=== PATIENT | female | born 1980 | race Caucasian/White ===

== ENCOUNTER 2016-09-06 21:00 | Emergency (ER) | payer BC ==
[2016-09-06] MEDS ORDERED: Aspirin Low Dose CHEW TAB* 81 MG PO ONE (22:15)
[2016-09-06 22:49] LABS: Hematocrit 37 % (35-47); Hemoglobin 12.2 g/dl (12.0-16.0); Mean Corpuscular HGB Conc 33 g/dl (31-36); Mean Corpuscular Hemoglobin 28 pg (27-31); Mean Corpuscular Volume 85 fL (80-97); Mean Platelet Volume 8 um3 (7.4-10.4); Red Blood Count 4.33 10^6/ul (4.0-5.4); Red Cell Distribution Width 13 % (10.5-15); White Blood Count 9.7 10^3/ul (3.5-10.8)
[2016-09-06 23:06] LABS: Albumin 3.7 g/dL (3.2-5.2); BUN/Creatinine Ratio 16.9 (8-20); EGFR African American 132.6 (>60); EGFR Non-African American 103.1 (>60); Globulin 3.1 g/dL (2-4); Magnesium 1.9 mg/dL (1.9-2.7); Potassium 3.6 mmol/L (3.5-5.0); Total Bilirubin 0.3 mg/dL (0.2-1.0); Total Protein 6.8 g/dL (6.4-8.9)
[2016-09-06 23:26] LABS: T4 7.04 g/dL (6.09-12.23)
[2016-09-06 23:27] LABS: TSH (Thyroid Stimulating Horm) 0.79 mcIU/mL (0.34-5.60)
--- NOTE | 2016-09-06 23:38 | ED ---
Jose Martin Cartagena Rebecca, scribed for Pepe Lovelace MD on 09/06/16 at 2217 . HPI Chest Pain - HPI Summary HPI Summary: 36 y/o F who presents to ED c/o CP. Pain began suddenly at 1900 while making dinner and has been intermittent since onset, occurring every 15-20 minutes and each episode lasting 2 minutes. Pain is in the left anterior chest with occasional radiation to both arms. Pain is characterized as throbbing/stabbing and is currently ranked 4/10. Sx aggravated and alleviated by nothing. Additionally c/o two near syncopal episodes consisting of tunnel vision and dizziness. Denies N/V, SOB. PMHx hyperthyroidism that led to palpitations. Had prior cardiac workup after dx of hyperthyroidism. - History of Current Complaint Chief Complaint: EDChestPainROMI Time Seen by Provider: 09/06/16 22:09 Hx Obtained From: Patient Onset/Duration: Started Hours Ago, Still Present Time of Onset: 19:00 Timing: Intermittent, Lasting Minutes - 2 minutes Initial Severity: Moderate Current Severity: Moderate Pain Intensity: 4 Pain Scale Used: 0-10 Numeric Chest Pain Location: Left Anterior Chest Pain Radiates: Yes Chest Pain Radiates To:: Arm - Bilateral, occasionally Character: Sharp/Stabbing Aggravating Factor(s): Nothing Alleviating Factor(s): Nothing Associated Signs and Symptoms: Positive: Chest Pain, Dizziness - During near syncopal episode, Other: - 2 near syncopal episodes; during near syncopal episode had tunnel vision. Negative: Shortness of Breath, Nausea, Vomiting - Allergy/Home Medications Allergies/Adverse Reactions: Allergies Allergy/AdvReac Type Severity Reaction Status Date / Time No Known Allergies Allergy Verified 09/06/16 22:29 PMH/Surg Hx/FS Hx/Imm Hx Endocrine/Hematology History: Reports: Hx Thyroid Disease - Hyperthyroidism Cardiovascular History: Denies: Hx Coronary Artery Disease, Hx Hypertension Infectious Disease History: No Infectious Disease History: Denies: Traveled Outside the [place] in Last 30 Days - Family History Known Family History: Positive: Cardiac Disease - STEMI <55 y/o - Social History Alcohol Use: Occasionally Substance Use Type: Reports: None Hx Tobacco Use: No Smoking Status (MU): Never Smoked Tobacco Review of Systems Positive: Other - Dizziness during near syncopal episode Positive: Other - Tunnel vision during near syncopal episode Positive: Chest Pain Negative: Shortness Of Breath Negative: Vomiting, Nausea Positive: Syncope - 2 near syncopal episodes All Other Systems Reviewed And Are Negative: Yes Physical Exam - Summary Physical Exam Summary: VITAL SIGNS: Reviewed. GENERAL: Patient is a well developed and nourished female who is lying comfortable in the stretcher. Patient is not in any acute respiratory distress. HEAD AND FACE: No signs of trauma. No ecchymosis, hematomas or skull depressions. No sinus tenderness. EYES: PERRLA, EOMI x 2, No injected conjunctiva, no nystagmus. EARS: Hearing grossly intact. Ear canals and tympanic membranes are within normal limits. MOUTH: Oropharynx within normal limits. NECK: Supple, trachea is midline, no adenopathy, no JVD, no carotid bruit, no c- spine tenderness, neck with full ROM. CHEST: Symmetric, no tenderness at palpation LUNGS: Clear to auscultation bilaterally. No wheezing or crackles. CVS: Regular rate and rhythm, S1 and S2 present, no murmurs or gallops appreciated. ABDOMEN: Soft, non-tender. No signs of distention. No rebound no guarding, and no masses palpated. Bowel sounds are normal. EXTREMITIES: FROM in all major joints, no edema, no cyanosis or clubbing. NEURO: Alert and oriented x 3. No acute neurological deficits. Speech is normal and follows commands. SKIN: Dry and warm Triage Information Reviewed: Yes Vital Signs On Initial Exam: Initial Vitals Temp Pulse Resp BP Pulse Ox 99 F 91 16 136/88 100 09/06/16 21:17 09/06/16 21:17 09/06/16 21:17 09/06/16 21:17 09/06/16 21:17 Vital Signs Reviewed: Yes Diagnostics - Vital Signs Vital Signs Temp Pulse Resp BP Pulse Ox 09/06/16: 99 F 91 16 136/88 100 - Laboratory Lab Results: Lab Results 09/06/16 09/06/16 09/06/16 Range/Units 22:35 22:35 22:35 WBC 9.7 (3.5-10.8) 10^3/ul RBC 4.33 (4.0-5.4) 10^6/ul Hgb 12.2 (12.0-16.0) g/dl Hct 37 (35-47) % MCV 85 (80-97) fL MCH 28 (27-31) pg MCHC 33 (31-36) g/dl RDW 13 (10.5-15) % Plt Count 231 (150-450) 10^3/ul MPV 8 (7.4-10.4) um3 Neut % (Auto) 58.5 (38-83) % Lymph % (Auto) 29.4 (25-47) % [place] % (Auto) 7.2 (1-9) % Eos % (Auto) 3.6 (0-6) % Baso % (Auto) 1.3 (0-2) % Absolute Neuts (auto) 5.7 (1.5-7.7) 10^3/ul Absolute Lymphs (auto) 2.9 (1.0-4.8) 10^3/ul Absolute Monos (auto) 0.7 (0-0.8) 10^3/ul Absolute Eos (auto) 0.4 (0-0.6) 10^3/ul Absolute Basos (auto) 0.1 (0-0.2) 10^3/ul Absolute Nucleated RBC 0 10^3/ul Nucleated RBC % 0 Sodium 134 (133-145) mmol/L Potassium 3.6 (3.5-5.0) mmol/L Chloride 103 (101-111) mmol/L Carbon Dioxide 26 (22-32) mmol/L Anion Gap 5 (2-11) mmol/L BUN 11 (6-24) mg/dL Creatinine 0.65 (0.51-0.95) mg/dL Est GFR ( Amer) 132.6 (>60) Est GFR (Non-Af Amer) 103.1 (>60) BUN/Creatinine Ratio 16.9 (8-20) Glucose 96 (70-100) mg/dL Lactic Acid 0.6 (0.5-2.0) mmol/L Calcium 9.0 (8.6-10.3) mg/dL Magnesium 1.9 (1.9-2.7) mg/dL Total Bilirubin 0.30 (0.2-1.0) mg/dL AST 13 (13-39) U/L ALT 10 (7-52) U/L Alkaline Phosphatase 38 (34-104) U/L CK-MB (CK-2) 1.1 (0.6-6.3) ng/mL Troponin I 0.00 (<0.04) ng/mL Total Protein 6.8 (6.4-8.9) g/dL Albumin 3.7 (3.2-5.2) g/dL Globulin 3.1 (2-4) g/dL Albumin/Globulin Ratio 1.2 (1-3) TSH Pending Thyroxine (T4) Pending Result Diagrams: 09/06/16 22:35 09/06/16 22:35 Lab Statement: Any lab studies that have been ordered have been reviewed, and results considered in the medical decision making process. - Radiology CX Xray Interpretation: No Acute Changes Radiology Interpretation Completed By: ED Physician - EKG 2100 Cardiac Rate: NL - 69 bpm EKG Rhythm: Sinus Rhythm - normal ST Segment: Normal - No ST elevation Chest Pain Course/Dx - Course Assessment/Plan: She is a 36 y/o F who presents to ED with a CC of left-sided CP. Is a sharp pain and it radiates to both upper extremities. At this time, in the ED pt is asymptomatic, she does not have any pain or complaints. Test results within normal limits. EKG shows sinus rhythm similar to previous EKG done on 10/12/2011. CXR shows no acute pathology. In the ER course the pt has continued to be asymptomatic. Since the pt is asymptomatic and results are within normal limits she will be d/c to home and follow up with PCP. I discussed all my findings and test results with the patient. Patient understands and agrees. Patient was instructed to return to the emergency room immediately if any of the symptoms return or worsens. Patient understands and agrees. Plan of care was discussed with the patient and patient understands and agrees with the plan of care. All questions were answered at patient satisfaction. There were no further complaints or concerns. Patient was instructed to follow up with primary care physician within 3 to 5 days. Patient is hemodynamically stable. Patient is alert and oriented x 3. No acute neurological deficits. - Diagnoses Provider Diagnoses: Chest pain Discharge - Discharge Plan Condition: Stable Disposition: HOME Patient Education Materials: Chest Pain (ED) Referrals: Alden Turner MD [Primary Care Provider] - 3 Days (Follow up with your primary care physician within the next 3 days. ) Additional Instructions: Return to ED for any returning or worsening symptoms. The documentation as recorded by the Jose Martin barron Rebecca accurately reflects the service I personally performed and the decisions made by , Pepe Lovelace MD.
[2016-09-06 23:54] VITALS: BP 112/72
--- NOTE | 2016-09-07 07:29 | RAD ---
INDICATION: Chest pain COMPARISON: Similar examination dated October 12, 2011 TECHNIQUE: Single AP portable view of the chest was obtained. FINDINGS: Image quality is compromised due to the relative inferiority of a portable chest x-ray. The heart and mediastinum exhibit normal size and contour. The lungs are grossly clear. There is no evidence of a large pleural effusion. Visualized bones are normal for the patient's age. IMPRESSION: No radiographic evidence for acute cardiopulmonary abnormality on this portable chest x-ray.
== END 2016-09-06 23:53 | disposition home or self-care (01) ==
LOC: ED 21:00
DX: R07.9 Chest pain, unspecified (principal); R42 Dizziness and giddiness; R55 Syncope and collapse
CPT/HCPCS: 36415; 71010; 80053; 82553; 83605; 83735; 84436; 84443; 84484; 85025; 93005; 99282; A9270-GY

== ENCOUNTER 2018-10-06 17:04 | Inpatient (IN) | payer BC ==
--- OUTSIDE RECORDS SUMMARY | 2018-10-06 17:21 | XMS REPORT | Continuity of Care Document ---
:1980 External Reference #:[id number] Author Name ShashankAileen narvaez Care Team Providers Name Role Phone Alden Turner MD Primary Care Physician Unavailable Payers Type Date Identification Numbers Payment Provider Subscriber Policy Number: [id number] BS Fep Marcelino Sánchez Group Name: [id number] [address] PayID: [id number] DARREN Hernandez [id number] Effective: 2015 Policy Number: [id number] BS Wilfred Sánchez Expires: 2015 PayID: [id number] [address] [address] DARREN Hernandez [id number] Advance Directives Description No Information Available Problems Date Description Provider Status Onset: 04/07/2015 Palpitations Robbie George M.D., [facility], [place] Active Onset: 04/07/2015 Chest pain Robbie George M.D., 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 Tobacco Use Start: Unknown Never Smoked Cigarettes ETOH Use Rarely consumes alcohol Tobacco Use Start: Unknown Patient has never smoked Smoking Status Reviewed: 09/10/18 Patient has never smoked Exercise Type/Frequency Does not exercise Allergies, Adverse Reactions, Alerts Date Description Reaction Status Severity Comments 04/07/2015 NKDA Active 04/07/2015 Rx Pain Medications Active nausea Medications Medication Date Status Form Strength Qnty SIG Indications Ordering Provider Propranolol Active Tablets 20mg 1 by mouth Unknown HCL 000 as needed Methimazole Active Tablets 10mg 15 mg once Unknown 000 daily Mothers Wort Hx 20 gtts as Unknown Herbal 000 needed for chest discomfort, headaches (vasodialato r) Immunizations Description No Information Available Vital Signs Date Vital Result Comment 09/10/2018 1:16pm Height 65.5 inches 5'5.50" Weight 170.00 lb Heart Rate 72 /min BP Systolic 122 mmHg BP Diastolic 72 mmHg Respiratory Rate 16 /min Body Temperature 98.9 F BMI (Body Mass Index) 27.9 kg/m2 04/07/2015 12:36pm Height 65.5 inches 5'5.50" Weight 175.00 lb no shoes Heart Rate 80 /min BP Systolic 128 mmHg Ra, reg cuff BP Diastolic 80 mmHg Ra, reg cuff BP Systolic Sitting 122 mmHg LA, reg cuff BP Diastolic Sitting 78 mmHg LA, reg cuff BP Systolic Standing 116 mmHg LA BP Diastolic Standing 80 mmHg LA Respiratory Rate 14 /min BMI (Body Mass Index) 28.7 kg/m2 Ejection Fraction 50-55% 05/28/2012 Results Description No Information Available Procedures Date Code Description Status 06/14/2015 67651 ECHO Stress Test Incl Perf Contiuous ekg Monitoring W/Phys Completed Superv 06/14/2015 14138 Cardiac Event Monitor Completed 06/14/2015 68496 Cardiac Event Monitor Completed 04/20/2015 11617 ECHO Transthoracic, Real-Time 2D With Doppler And Color Completed Flow 04/09/2015 53962 Holter Monitoring 24 HR New Completed 04/09/2015 27374 Holter Monitoring 24 HR New Completed 04/07/2015 50032 EKG Tracing & Interpretation Completed 05/28/2012 65036 Color Flow Doppler/Interp & Reprt Completed 05/28/2012 24170 Pulse Wave/Continuous-Interp.RPT Completed 05/28/2012 18962 ECHO Transthorasic Realtime 2D W Doppler & Color Flow Hosp Completed Encounters Type Date Location Provider Dx Diagnosis Office Visit 04/07/2015 [facility] Robbie George, 785.1 Palpitations 1:00p Herman Sacnhez[facility] FAS[facility] 786.50 Pain Chest Unspec Plan of Treatment Future Appointment(s):10/21/2018 11:30 am - Madison Gallardo MD at [facility]10/04/2018 7:30 am - Nica Baugh MD at [facility]10/04/2018 7:30 am - Madison Gallardo MD at [facility]09/10/2018 - Madison Gallardo MDE05.00 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
[2018-10-06 18:30] LABS: ABS Basophils 0.1 10^3/ul (0-0.2); ABS Eosinophils 0.4 10^3/ul (0-0.6); ABS Lymphocytes 3.3 10^3/ul (1.0-4.8); ABS Monocytes 0.8 10^3/ul (0-0.8); ABS Neutrophils 6.9 10^3/ul (1.5-7.7); ABS Nucleated RBC 0 10^3/ul; Eosinophil % 3.2 %; Hematocrit 38 % (35-47); Hemoglobin 12.7 g/dl (12.0-16.0); Lymphocyte % 28.7 %; Mean Corpuscular HGB Conc 33 g/dl (31-36); Mean Corpuscular Hemoglobin 29 pg (27-31); Mean Corpuscular Volume 86 fL (80-97); Mean Platelet Volume 7.7 fL (7.4-10.4); Nucleated Red Blood Cells % 0; Platelet Count 238 10^3/ul (150-450); Red Blood Count 4.42 10^6/ul (4.00-5.40); Red Cell Distribution Width 13 % (10.5-15); White Blood Count 11.5 10^3/ul (3.5-10.8)
[2018-10-06 18:46] LABS: Albumin/Globulin Ratio 1.3 (1-3); BUN/Creatinine Ratio 16.9 (8-20); Calcium 7.2 mg/dL (8.6-10.3); EGFR African American 111.5 (>60); EGFR Non-African American 92.1 (>60); Potassium 3.5 mmol/L (3.5-5.0); Total Bilirubin 0.4 mg/dL (0.2-1.0)
[2018-10-06] MEDS ORDERED: Calcium Gluconate INJ* 1 GM in NS 0.9% 100 ML* 100 ML IVPB ONE (19:06)
[2018-10-06] MEDS ORDERED: NS 0.9% 100 ML* 100 ML ONE (19:10)
[2018-10-06] MEDS ORDERED: CALCIUM CARBONATE 1250 MG PO SCH (19:30)
--- NOTE | 2018-10-06 19:31 | ED ---
Neurological HPI - HPI Summary HPI Summary: Patient with history of recent thyroidectomy complains of numbness and tingling all over, right hand contraction, left hand tremor, charley horses in right calf , right ear and jaw spasm starting today. Denies any other symptoms, pain or injury. - History of Current Complaint Chief Complaint: EDNeurologicalDeficit Stated Complaint: TINGLING/NUMBNESS ON RIGHT SIDE Time Seen by Provider: 10/06/18 19:02 Hx Obtained From: Patient Onset/Duration: Sudden Onset Timing: Constant Onset Severity: Moderate Current Severity: Moderate Seizure Severity: Moderate Neurological Deficit Location: Generalized Pain Intensity: 5 Pain Scale Used: 0-10 Numeric Character: Numbness/Tingling - Allergy/Home Medications Allergies/Adverse Reactions: Allergies Allergy/AdvReac Type Severity Reaction Status Date / Time No Known Allergies Allergy Verified 10/06/18 17:07 PMH/Surg Hx/FS Hx/Imm Hx Endocrine/Hematology History: Reports: Hx Thyroid Disease - Hyperthyroidism Cardiovascular History: Reports: Other Cardiovascular Problems/Disorders - TACHYCARDIA- REPORTS RELATED TO THYROID Denies: Hx Coronary Artery Disease, Hx Hypertension, Hx Pacemaker/ICD History: Denies: Hx Dialysis Sensory History: Reports: Hx Contacts or Glasses - GLASSES Denies: Hx Hearing Aid Opthamlomology History: Reports: Hx Contacts or Glasses - GLASSES Neurological History: Denies: Hx Dementia Psychiatric History: Denies: Hx Autism Infectious Disease History: No Infectious Disease History: Denies: Traveled Outside the [place] in Last 30 Days - Family History Known Family History: Positive: Cardiac Disease - STEMI <55 y/o - Social History Alcohol Use: Occasionally Substance Use Type: Reports: None Hx Tobacco Use: No Smoking Status (MU): Never Smoked Tobacco Have You Smoked in the Last Year: No Review of Systems Constitutional: Negative Eyes: Negative ENT: Negative Cardiovascular: Negative Respiratory: Negative Gastrointestinal: Negative Genitourinary: Negative Positive: Myalgia Skin: Negative Positive: Paresthesia, Numbness Psychological: Normal All Other Systems Reviewed And Are Negative: Yes Physical Exam - Summary Physical Exam Summary: Right hand in position of contraction. Left hand has mild tremor. Physical exam otherwise unremarkable. Triage Information Reviewed: Yes Vital Signs On Initial Exam: Initial Vitals Temp Pulse Resp BP Pulse Ox 98.2 F 88 16 129/93 96 10/06/18 17:08 10/06/18 17:08 10/06/18 17:08 10/06/18 17:08 10/06/18 17:08 Vital Signs Reviewed: Yes Appearance: Positive: Well-Appearing Skin: Positive: Warm Head/Face: Positive: Normal Head/Face Inspection Eyes: Positive: Normal Neck: Positive: Supple Respiratory/Lung Sounds: Positive: Clear to Auscultation Cardiovascular: Positive: Normal Abdomen Description: Positive: Nontender Musculoskeletal: Positive: Normal Neurological: Positive: Normal Psychiatric: Positive: Normal AVPU Assessment: Alert - [place] Coma Scale Best Eye Response: 4 - Spontaneous Best Motor Response: 6 - Obeys Commands Best Verbal Response: 5 - Oriented Coma Scale Total: 15 Diagnostics - Vital Signs Vital Signs Temp Pulse Resp BP Pulse Ox 10/06/18 17:08 98.2 F 88 16 129/93 96 - Laboratory Lab Results: Lab Results 10/06/18 10/06/18 10/06/18 Range/Units 17:31 17:31 19:19 WBC 11.5 H (3.5-10.8) 10^3/ul RBC 4.42 (4.00-5.40) 10^6/ul Hgb 12.7 (12.0-16.0) g/dl Hct 38 (35-47) % MCV 86 (80-97) fL MCH 29 (27-31) pg MCHC 33 (31-36) g/dl RDW 13 (10.5-15) % Plt Count 238 (150-450) 10^3/ul MPV 7.7 (7.4-10.4) fL Neut % (Auto) 60.1 % Lymph % (Auto) 28.7 % [place] % (Auto) 6.8 % Eos % (Auto) 3.2 % Baso % (Auto) 1.2 % Absolute Neuts (auto) 6.9 (1.5-7.7) 10^3/ul Absolute Lymphs (auto) 3.3 (1.0-4.8) 10^3/ul Absolute Monos (auto) 0.8 (0-0.8) 10^3/ul Absolute Eos (auto) 0.4 (0-0.6) 10^3/ul Absolute Basos (auto) 0.1 (0-0.2) 10^3/ul Absolute Nucleated RBC 0 10^3/ul Nucleated RBC % 0 Sodium 138 (135-145) mmol/L Potassium 3.5 (3.5-5.0) mmol/L Chloride 102 (101-111) mmol/L Carbon Dioxide 29 (22-32) mmol/L Anion Gap 7 (2-11) mmol/L BUN 12 (6-24) mg/dL Creatinine 0.71 (0.51-0.95) mg/dL Est GFR ( Amer) 111.5 (>60) Est GFR (Non-Af Amer) 92.1 (>60) BUN/Creatinine Ratio 16.9 (8-20) Glucose 98 (70-100) mg/dL Calcium 7.2 L (8.6-10.3) mg/dL Ionized Calcium 0.87 L (1.16-1.32) mmol/L Total Bilirubin 0.40 (0.2-1.0) mg/dL AST 16 (13-39) U/L ALT 12 (7-52) U/L Alkaline Phosphatase 39 (34-104) U/L Total Protein 7.0 (6.4-8.9) g/dL Albumin 4.0 (3.2-5.2) g/dL Globulin 3.0 (2-4) g/dL Albumin/Globulin Ratio 1.3 (1-3) Result Diagrams: 10/06/18 17:31 10/06/18 17:31 Lab Statement: Any lab studies that have been ordered have been reviewed, and results considered in the medical decision making process. Course/Dx - Course Course Of Treatment: Patient with history of recent thyroidectomy complains of numbness and tingling all over, right hand contraction, left hand tremor, charley horses in right calf, right ear and jaw spasm starting today. Denies any other symptoms, pain or injury. Physical exam:Right hand in position of contraction. Left hand has mild tremor. Physical exam otherwise unremarkable. Vital signs within normal limits. WBC 11.5. Calcium 7.2. Patient has been evaluated by Dr. Faulkner on-call for surgery or admit patient. Diagnosis hypocalcemia secondary to thyroidectomy. - Diagnoses Provider Diagnoses: Hypocalcemia Discharge - Sign-Out/Discharge Documenting (check all that apply): Patient Departure - Discharge Plan Condition: Stable Disposition: ADMITTED TO [facility] - Billing Disposition and Condition Condition: STABLE Disposition: Admitted to [facility]
--- NOTE | 2018-10-06 20:10 | HP ---
HISTORY AND PHYSICAL UPDATE: DATE OF ADMISSION: 10/06/18 HISTORY OF PRESENT ILLNESS: The patient is a 38-year-old female with history of Graves disease, status post total thyroidectomy 2 days ago, who was discharged on postop day 0. The patient did well on postoperative day 1, but woke up today with feeling of facial numbness that extended towards the lower part of her body. The patient has also had difficulty with strength at her right upper extremity and is now complaining of flexing at the right hand. The patient denies any shortness of breath, no chest pain, no pain at surgical site. She does not require medications. She is utilizing p.o. calcium, taking this regularly; however, she is staying away from taking it at the same as her Synthroid. She contacted our service and I was aware of her case, asked her to present to the hospital. She was directed to the emergency room because of household refrigeration mechanic's recommendation rather than direct admit. Her symptoms persist and she feels that the numbness is extending more inferior than her face at this point. The patient denies any nausea, vomiting, no loose bowel movements. She is urinating. PAST MEDICAL HISTORY: Reviewed and unchanged with Graves disease, hyperthyroidism, cerebral palsy, prolapsed bladder, scarlet fever. MEDICATION LIST: Includes: 1. Methimazole. 2. Synthroid. 3. Calcium. PHYSICAL EXAMINATION GENERAL: Alert and oriented x3, in no apparent distress. VITAL SIGNS: She is afebrile. Vital signs are stable. HEENT: Normocephalic, atraumatic. Sclerae anicteric. Mucous membranes are moist. NECK: Soft and no evidence of hematoma. Tongue is midline. Her voice is not hoarse. Negative Chvostek sign bilaterally. I did not test for Trousseau sign , but the patient's right hand does show some carpal spasm at baseline, so this was not checked. LUNGS: Clear. EXTREMITIES: Within normal limits. LABORATORY DATA: Reviewed and show a calcium of 7.2. The patient's baseline is 9 preoperatively. Ionized calcium is 0.87, reference range is 1.16 to 1.32. PTH is pending. The patient's albumin is 4. H and H within normal limits. EKG reviewed and is within normal limits. IMPRESSION: Hypocalcemia, status post thyroidectomy. PLAN/RECOMMENDATIONS: Recommendation is for admission, IV calcium, and calcium checks through the night to ensure that we are giving the appropriate repletion. Did ask hospitalist to consult on this patient and I will ask Dr. Esparza to evaluate tomorrow as well. The patient is aware of this plan and agrees. She is otherwise comfortable at this point and we will follow her symptoms as well as her labs in the coming hours. [id number]/[facility] #: [id number] MTDD
[2018-10-06] MEDS ORDERED: oxyCODONE/Acetamin 5/325 MG* TAB PO PRN (20:26)
[2018-10-06] MEDS ORDERED: Ondansetron ODT TAB* 4 MG PO PRN (20:26)
[2018-10-06 20:28] LABS: TSH (Thyroid Stimulating Horm) 3.44 mcIU/mL (0.34-5.60)
[2018-10-06 20:30] LABS: Free T4 0.9 ng/dL (0.61-1.12)
[2018-10-06 20:50] LABS: Magnesium 1.5 mg/dL (1.9-2.7)
[2018-10-06] MEDS ORDERED: Magnesium Sulfate 2 GM IV* 2 GM/50 ML BAG IVPB ONE (20:57)
[2018-10-06] MEDS: Ibuprofen TAB* 600 MG PO PRN (21:55)
[2018-10-06] MEDS: NS 0.9% 1000 ML** 1,000 ML IV SCH (21:55)
[2018-10-06] MEDS ORDERED: Calcium Carbonate TAB* 1250 MG (CALCIUM 500 MG) PO SCH (22:00)
--- NOTE | 2018-10-06 22:00 | CONS ---
CC: Alden Turner MD * CONSULTATION REPORT: DATE OF CONSULT: 10/06/18 PRIMARY CARE PHYSICIAN: Alden Turner MD REFERRING PHYSICIAN FOR CONSULT: Geo Diaz MD REASON FOR CONSULT: Medical management of hypocalcemia. HISTORY OF PRESENT ILLNESS: This is a 38-year-old female with a past medical history of Graves' disease, who underwent a total thyroidectomy with Dr. Gallardo on 10/04/18. The patient states on 10/04/18, she was having a lot of nausea and vomiting and did not really eat very much that day. She was discharged home that evening. The following day, she took 2 tablets of the calcium carbonate. She thought she was only supposed to be taking 1250 mg daily. This morning, she noticed that she was having some facial numbness, her hands were shaking, and she noticed that her hands were contracted, worse on the right than the left. Later on, she began noticing more cramps in her calves. She took more calcium carbonate for a total of 4 tabs of 750 mg, but the symptoms persisted and it was recommended she come to the emergency room for further evaluation. The patient states she was started on a scopolamine patch and she has no longer vomited since 10/04/18, but has been nauseated yesterday and the scopolamine patch has helped. No diarrhea, no constipation, no issues with urinary symptoms. The patient states her eyeballs feel numb, she still has facial numbness. Since in the emergency room after receiving some IV calcium, some of the twitching contraction has improved, but she still has some sensory deficits. In the emergency room, the patient had labs. She was given 1 g of calcium gluconate and Dr. Diaz was admitting her and recommended a hospitalist consultation as well. PAST MEDICAL HISTORY: 1. History of Graves' disease, status post total thyroidectomy with Dr. Gallardo on 10/04/18. 2. Mild cerebral palsy. MEDICATIONS: 1. Calcium carbonate 1250 mg p.o. daily, though the instructions say q.6 hours x7 days, then daily. 2. Synthroid 137 mcg p.o. daily. 3. Percocet 1 tab q.6 hours as needed. 4. Scopolamine patch as needed for nausea. 5. Ibuprofen as needed for pain. ALLERGIES: No known drug allergies. FAMILY HISTORY: Her parents are alive and healthy. 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 No smoking, occasional alcohol use. She does not have a healthcare proxy at this time, but understands that she should designate a healthcare proxy. REVIEW OF SYSTEMS: A 14-point review of systems as mentioned in the HPI, otherwise negative. No fevers or chills. No chest pain. No respiratory symptoms. No difficulty swallowing or managing her secretions. No change in her voice. Otherwise negative. PHYSICAL EXAM: Vitals: Temp 98.2, pulse rate 71, respiratory rate 16, oxygen saturation 95% on room air, and blood pressure 110/90. General: In no acute distress. Resting comfortably with several of her friends at the bedside. HEENT : Head normocephalic. Pupils are equal and reactive. Oropharynx, mucous membranes are moist. Neck: Supple. She does have a small edema over her incision which is clear, dry, and intact. Some mild tenderness around the incision site. Cardiac: Regular rate and rhythm. Soft, systolic murmur heard throughout. Respiratory: Clear to auscultation. No wheezes, rhonchi, or rales. Abdomen: Soft, nontender, and nondistended. Extremities: No clubbing , cyanosis, or edema. +2 DP. Sensation: She does have some sensory deficits in her face and her upper extremities. No sensory deficits in her lower extremities. She is mildly contracted on the right hand. Strength is equal and symmetric in upper and lower muscle groups. DIAGNOSTIC STUDIES/LAB DATA: White count 11.5, hemoglobin 12.7, hematocrit 38, platelets 238. Sodium 138, potassium 3.5, chloride 102, bicarb 29, BUN 12, creatinine 0.71. Calcium is 7.2, ionized calcium is 0.87. Radiographic Data: EKG shows normal sinus rhythm with a rate of 64, QTc of 442. ASSESSMENT AND PLAN: This is a 38-year-old female with a past medical history of Graves' disease, status post thyroidectomy on 10/04/18, who presents with numbness and tingling and hands mariela, found to be hypocalcemic. Hypocalcemic. Assessment: Common complication after a thyroidectomy. Recommendation: The patient was ordered 1 g of calcium gluconate in the emergency room and she will be given another gram at 2 a.m. and then started on her p.o. home regimen that she should have been taking, that she was not, which is 1250 mg of calcium gluconate every 6 hours. I will also add on a magnesium. Dr. Diaz started her on calcitriol in case there is a parathyroid issue as well to help with absorption of her calcium. I will check her ionized calcium in the morning and magnesium as well in addition to further labs surgery has ordered. I will continue her on her Percocet, ibuprofen, and will substitute Zofran in exchange of a scopolamine patch for her. FEN. Regular diet per Surgery. She will be getting IV fluids overnight as well. DVT prophylaxis. Per Surgery. Code status: Full code. Thank you for this consultation. We will follow along with you. PATIENT TIME: Greater than 40 minutes was spent during the consultation, more than half the time spent in direct patient contact. [id number]/CPS #: [id number] MTDD
[2018-10-06] MEDS: Calcitriol CAP* 0.25 MCG PO SCH (22:35)
[2018-10-06] MEDS: Calcium Carbonate TAB* 1250 MG (CALCIUM 500 MG) PO SCH (22:35)
[2018-10-07] MEDS ORDERED: NS 0.9% 50 ML* 50 ML ONE (01:18)
[2018-10-07] MEDS: Calcium Carbonate TAB* 1250 MG (CALCIUM 500 MG) PO SCH ×2 (01:41→10:33)
[2018-10-07] MEDS ORDERED: Calcium Gluconate INJ* 1 GM in NS 0.9% 50 ML* 50 ML IVPB ONE ×2 (02:00→07:26)
[2018-10-07 05:44] LABS: Magnesium 1.6 mg/dL (1.9-2.7)
[2018-10-07 05:49] LABS: C Reactive Protein 2.44 mg/L (<8.01)
[2018-10-07] MEDS: Levothyroxine TAB* 137 MCG TAB PO SCH (05:50)
[2018-10-07] MEDS ORDERED: Magnesium Sulfate 2 GM IV* 2 GM/50 ML BAG IVPB ONE (07:27)
[2018-10-07] MEDS: Ibuprofen TAB* 600 MG PO PRN ×3 (07:32→22:39)
--- NOTE | 2018-10-07 08:59 | PN ---
Progress Note - Progress Note Date of Service: 10/07/18 SOAP: Subjective: [Pt feels a bit better since yesterdays admission. She reports a 6/10 "dull" non radiating pain around the incision on her neck from her total thyroidectomy. Pain is being managed with 600mg of Ibuprofen q 6 hours. She reports no trouble with swallowing or breathing. She endorses that her right arm still feels a bit weak and "tired" but believes the muscle spams and tremor have gone down significantly. She states that her perioral numbness has resolved aswell. She does complain that she has mild "tingling" in both her hands at this time. She states that she had some issues with sleep last evening , but no issues with eating, with urination or bowel movements. She denies fever , chills, chest pain, SOB, abdominal pain, nausea or vomiting today. ] Objective: [Vitals were checked and found to be unremarkable. Pt afebrile. Vital Signs Temp 97.9 F 10/07/18 04:10 Pulse 68 10/07/18 04:10 Resp 18 10/07/18 04:10 BP 115/77 10/07/18 04:10 Pulse Ox 96 10/07/18 04:10 Intake & Output 10/06/18 10/07/18 10/07/18 18:59 06:59 18:59 Intake Total 115 Output Total 850 Balance -735 Weight 180 lb 180 lb Intake: IV Fluids 115 calcium gluconate 60 magnesium 55 Output: Urine 850 General: Pt resting comfortable on her bed in no acute distress. No hoarseness noted in conversation. Heart: S1, S2. RRR. No M/R/G. Lungs: Clear to auscultation throughout. No evidence of consolidation. Abdomen: Nontender to palpation. Bowel sounds normoactive. Extremities: No evidence of edema to the upper or lower extremities, bilaterally. Neurological: CN II-XII intact aside from mild deficit of CN XI (weakness with shoulder shrug). Negative Chvostek sign. Pt has slightly diminished sensation to the right cheek. Mild tremor is noted in the hands, bilaterally. Slight left side facial droop noted at baseline. Labs from 0509 this morning (10/07/18) show: -Hypoparathyroidism - PTH low -Hypocalcemia - Ionized calcium is .84 (L) reference range is 1.16-1.32 -Normal albumin levels -Normal TSH and T4 ] Assessment: [38 y/o female POD# 3 s/p total thyroidectomy for Graves disease; presenting with hypoparathyroidism and hypocalcemia.] Plan: [-Pt currently being given IV potassium and magnesium -Continue to manage pain -Continue to track PTH and calcium levels, monitor neurological status -Dr. Gallardo to see pt this afternoon]
[2018-10-07] MEDS ORDERED: Methimazole TAB* 5 MG PO SCH (09:00)
[2018-10-07] MEDS: Calcitriol CAP* 0.25 MCG PO SCH ×3 (10:33→21:34)
--- NOTE | 2018-10-07 12:49 | PN ---
Progress Note - Progress Note Date of Service: 10/07/18 Note: Surgery Progress Note S: Patient feels better this morning. Less tingling and numbness and her muscle cramping around her hands have improved. Her morning IV calcium started infusing around 11am and she said prior to that she started becoming symptomatic again but feels better now. She is tolerating a regular diet, no voice complaints. O: Vital Signs: Temp Pulse Resp BP Pulse Ox 98.4 F 66 16 117/76 95 10/07/18 07:32 10/07/18 07:32 10/07/18 07:32 10/07/18 07:32 10/07/18 07:32 Laboratory Results - last 24 hr 10/06/18 10/06/18 10/06/18 17:31 17:31 17:31 WBC 11.5 H RBC 4.42 Hgb 12.7 Hct 38 MCV 86 MCH 29 MCHC 33 RDW 13 Plt Count 238 MPV 7.7 Neut % (Auto) 60.1 Lymph % (Auto) 28.7 [place] % (Auto) 6.8 Eos % (Auto) 3.2 Baso % (Auto) 1.2 Absolute Neuts (auto) 6.9 Absolute Lymphs (auto) 3.3 Absolute Monos (auto) 0.8 Absolute Eos (auto) 0.4 Absolute Basos (auto) 0.1 Absolute Nucleated RBC 0 Nucleated RBC % 0 Sodium 138 Potassium 3.5 Chloride 102 Carbon Dioxide 29 Anion Gap 7 BUN 12 Creatinine 0.71 Est GFR ( Amer) 111.5 Est GFR (Non-Af Amer) 92.1 BUN/Creatinine Ratio 16.9 Glucose 98 Calcium 7.2 L Ionized Calcium Magnesium 1.5 L Total Bilirubin 0.40 AST 16 ALT 12 Alkaline Phosphatase 39 C-Reactive Protein Total Protein 7.0 Albumin 4.0 Globulin 3.0 Albumin/Globulin Ratio 1.3 TSH 3.44 Free T4 0.90 PTH Intact < 1.0 L Calcium (PTH Intact) 7.2 L 10/06/18 10/07/18 10/07/18 19:19 01:18 05:09 WBC RBC Hgb Hct MCV MCH MCHC RDW Plt Count MPV Neut % (Auto) Lymph % (Auto) [place] % (Auto) Eos % (Auto) Baso % (Auto) Absolute Neuts (auto) Absolute Lymphs (auto) Absolute Monos (auto) Absolute Eos (auto) Absolute Basos (auto) Absolute Nucleated RBC Nucleated RBC % Sodium Potassium Chloride Carbon Dioxide Anion Gap BUN Creatinine Est GFR ( Amer) Est GFR (Non-Af Amer) BUN/Creatinine Ratio Glucose Calcium 7.0 L Ionized Calcium 0.87 L Magnesium 1.6 L Total Bilirubin AST ALT Alkaline Phosphatase C-Reactive Protein 2.44 Total Protein Albumin Globulin Albumin/Globulin Ratio TSH Free T4 PTH Intact Calcium (PTH Intact) 10/07/18 10/07/18 10/07/18 05:09 05:09 07:29 WBC RBC Hgb Hct MCV MCH MCHC RDW Plt Count MPV Neut % (Auto) Lymph % (Auto) [place] % (Auto) Eos % (Auto) Baso % (Auto) Absolute Neuts (auto) Absolute Lymphs (auto) Absolute Monos (auto) Absolute Eos (auto) Absolute Basos (auto) Absolute Nucleated RBC Nucleated RBC % Sodium Potassium Chloride Carbon Dioxide Anion Gap BUN Creatinine Est GFR ( Amer) Est GFR (Non-Af Amer) BUN/Creatinine Ratio Glucose Calcium 7.0 L Ionized Calcium 0.84 L Magnesium Total Bilirubin AST ALT Alkaline Phosphatase C-Reactive Protein Total Protein Albumin Globulin Albumin/Globulin Ratio TSH Free T4 PTH Intact < 1.0 L Calcium (PTH Intact) 7.2 L Intake & Output 10/06/18 10/07/18 10/07/18 22:59 06:59 14:59 Intake Total 115 250 Output Total 850 700 Balance -735 -450 Weight 180 lb Intake: IV Fluids 115 calcium gluconate 60 magnesium 55 Oral 250 Output: Urine 850 700 Other: Date of Last Bowel 10/07/18 Movement # Bowel Movements 1 Estimated Stool Amount Small Physical exam: Neck- incision c/d/i, no swelling, redness, minimal tenderness A/P: 38 F ho Grave's, POD 3 from total thyroidectomy and parathyroid autotransplantation with hypoparathyroidism. - I explained to patient that this will most likely be a transient hypoparathyroidism as it may take a while for the autotransplanted parathyroid tissue to start functioning, furthermore the two parathyroids that remained in situ may be stunned from the extensive dissection it took to separate them from the enlarged thyroid. - Continue calcium carbonate 1250mg QID, calcitriol 0.5mcg BID, IV calcium as needed - Continue Q6H labs - Appreciate Dr. Esparza's recommendations. Patient should be able to be discharged home once calcium levels increase and remain stable on an oral regimen. - Continue Synthroid 137mcg daily
[2018-10-07] MEDS: Hydrochlorothiazide TAB* 25 MG PO SCH (13:40)
[2018-10-07] MEDS: Calcium Carbonate LIQ* 1,250 MG/5 ML UDC PO SCH ×3 (14:20→21:34)
--- NOTE | 2018-10-07 15:24 | PN ---
Subjective Date of Service: 10/07/18 Interval History: Pt continues to feel intermittently "shaky" and "twitchy." She states that she feels this everywhere, but it is worse in her extremities and her face. She states that she has tingling in her facial area at times as well. She denies pain at or around thyroidectomy incision site or hoarseness of voice. Last BM was this morning, pt states it was formed. She denies CP, SOB, stoddard, n/v/d/c. She states that she has no other concerns at the moment. Objective Active Medications: Calcitriol (Rocaltrol Cap*) 0.5 mcg PO TID [facility]AIA Calcium Carbonate (Calcium Carbonate Liq*) 1,250 mg PO FIVE TIMES DAILY [facility] Hydrochlorothiazide (Hydrodiuril Tab*) 25 mg PO DAILY [facility] Sodium Chloride (Ns 0.9% 1000 Ml) 1,000 mls @ 75 mls/hr IV PER RATE [facility] Ibuprofen (Motrin Tab*) 600 mg PO Q6H PRN Levothyroxine Sodium (Synthroid Tab*) 137 mcg PO DAILY@0600 [facility] Ondansetron HCl (Zofran Odt Tab*) 4 mg PO Q8H PRN Oxycodone/Acetaminophen (Percocet 5/325 Tab*) 1 tab PO Q6H PRN Vital Signs: Temp Pulse Resp BP Pulse Ox 98.4 F 69 18 119/75 97 10/07/18 11:26 10/07/18 11:26 10/07/18 11:26 10/07/18 11:26 10/07/18 11:26 Oxygen Devices in Use Now: None Appearance: Pt is sitting upright in bed, appears comfortable and in no acute distress. Eyes: No Scleral Icterus, PERRLA Ears/Nose/Mouth/Throat: NL Teeth, Lips, Gums, Clear Oropharnyx, Mucous Membranes Moist Neck: NL Appearance and Movements; NL JVP, Trachea Midline, No Thyroid Enlargement, Masses, - - Dressing to surgical thyroidectomy site CDI with small amount of edema. Nontender to light palpation, without discharge or erythema. Chvostek's sign positive. Respiratory: Symmetrical Chest Expansion and Respiratory Effort, Clear to Auscultation Cardiovascular: NL Sounds; No Murmurs; No JVD, RRR, No Edema Abdominal: No Hepatosplenomegaly, - - Hypoactive BS, nontender to palpation, without distention Lymphatic: No Cervical Adenopathy Extremities: No Edema, No Clubbing, Cyanosis Neurological: Alert and Oriented x 3 Result Diagrams: 10/06/18 17:31 10/06/18 17:31 Additional Lab and Data: Lab Results 10/06/18 10/06/18 10/06/18 Range/Units 17:31 17:31 19:19 WBC 11.5 H (3.5-10.8) 10^3/ul RBC 4.42 (4.00-5.40) 10^6/ul Hgb 12.7 (12.0-16.0) g/dl Hct 38 (35-47) % MCV 86 (80-97) fL MCH 29 (27-31) pg MCHC 33 (31-36) g/dl RDW 13 (10.5-15) % Plt Count 238 (150-450) 10^3/ul MPV 7.7 (7.4-10.4) fL Neut % (Auto) 60.1 % Lymph % (Auto) 28.7 % [place] % (Auto) 6.8 % Eos % (Auto) 3.2 % Baso % (Auto) 1.2 % Absolute Neuts (auto) 6.9 (1.5-7.7) 10^3/ul Absolute Lymphs (auto) 3.3 (1.0-4.8) 10^3/ul Absolute Monos (auto) 0.8 (0-0.8) 10^3/ul Absolute Eos (auto) 0.4 (0-0.6) 10^3/ul Absolute Basos (auto) 0.1 (0-0.2) 10^3/ul Absolute Nucleated RBC 0 10^3/ul Nucleated RBC % 0 Sodium 138 (135-145) mmol/L Potassium 3.5 (3.5-5.0) mmol/L Chloride 102 (101-111) mmol/L Carbon Dioxide 29 (22-32) mmol/L Anion Gap 7 (2-11) mmol/L BUN 12 (6-24) mg/dL Creatinine 0.71 (0.51-0.95) mg/dL Est GFR ( Amer) 111.5 (>60) Est GFR (Non-Af Amer) 92.1 (>60) BUN/Creatinine Ratio 16.9 (8-20) Glucose 98 (70-100) mg/dL Calcium 7.2 L (8.6-10.3) mg/dL Ionized Calcium 0.87 L (1.16-1.32) mmol/L Total Bilirubin 0.40 (0.2-1.0) mg/dL AST 16 (13-39) U/L ALT 12 (7-52) U/L Alkaline Phosphatase 39 (34-104) U/L Total Protein 7.0 (6.4-8.9) g/dL Albumin 4.0 (3.2-5.2) g/dL Globulin 3.0 (2-4) g/dL Albumin/Globulin Ratio 1.3 (1-3) Assess/Plan/Problems-Billing Assessment: Pt is a 38yof with PMHx Grave's disease with total thyroidectomy, cerebral palsy , prolapsed bladder, h/o scarlet fever who presents POD3 total thyroidectomy with hypocalcemia and hypoparathyroidism. - Patient Problems (1) Hypoparathyroidism Comment: -Mg and Ca low; IV Ca 3g and IV Mg 4g ordered; recheck to be done at 1930 -Continue treatment of hypocalcemia s/p total thyroidectomy per Dr. Gallardo's recommendations (2) DVT prophylaxis Comment: -Per surgery; pt is ambulatory (3) Full code status Status and Disposition: Inpatient. Discharge once calcium WNL and maintained with PO calcium.
[2018-10-07 15:39] LABS: Calcium 6.9 mg/dL (8.6-10.3); Magnesium 1.8 mg/dL (1.9-2.7)
[2018-10-07] MEDS: Calcium Gluconate INJ* 1 GM in NS 0.9% 50 ML* 50 ML IVPB ONE ×2 (15:45→16:35)
[2018-10-07] MEDS ORDERED: Magnesium Sulf 4 GM/100 ML IV* 4,000 MG/100 ML BAG IVPB ONE (16:21)
[2018-10-07] MEDS ORDERED: Calcium Gluconate INJ* 2 GM in NS 0.9% 100 ML* 100 ML IV ONE (17:00)
[2018-10-07] MEDS: NS 0.9% 1000 ML** 1,000 ML IV SCH (20:00)
[2018-10-07] MEDS ORDERED: NS 0.9% 100 ML* 100 ML ONE (20:08)
[2018-10-07 20:11] LABS: Calcium 7.1 mg/dL (8.6-10.3); Magnesium 2.6 mg/dL (1.9-2.7)
[2018-10-08 02:05] LABS: Calcium 7.6 mg/dL (8.6-10.3); Magnesium 1.8 mg/dL (1.9-2.7)
[2018-10-08] MEDS: Magnesium Oxide TAB* 400 MG PO SCH ×2 (03:05→09:15)
[2018-10-08] MEDS: Calcium Carbonate LIQ* 1,250 MG/5 ML UDC PO SCH ×5 (05:54→22:03)
[2018-10-08] MEDS: Levothyroxine TAB* 137 MCG TAB PO SCH (05:54)
--- NOTE | 2018-10-08 08:04 | PN ---
Subjective Date of Service: 10/08/18 Interval History: Pt states she is feeling better today, stating that she has less twitching. She denies facial tingling and paresthesias. She reports having diarrhea, but denies abdominal pain, cramping. She states that she is tired and feels that her incision is swollen, but denies difficulty breathing, hoarseness. She denies CP, SOB, n/v, pain in the extremities, calf tenderness. Objective Active Medications: Calcitriol (Rocaltrol Cap*) 0.5 mcg PO TID [facility] Calcium Carbonate (Calcium Carbonate Liq*) 1,250 mg PO FIVE TIMES DAILY [facility] Hydrochlorothiazide (Hydrodiuril Tab*) 25 mg PO DAILY [facility] Sodium Chloride (Ns 0.9% 1000 Ml) 1,000 mls @ 75 mls/hr IV PER RATE [facility] Ibuprofen (Motrin Tab*) 600 mg PO Q6H PRN Levothyroxine Sodium (Synthroid Tab*) 137 mcg PO DAILY@0600 [facility] Magnesium Oxide (Magox 400 Tab*) 800 mg PO DAILY [facility] Ondansetron HCl (Zofran Odt Tab*) 4 mg PO Q8H PRN Oxycodone/Acetaminophen (Percocet 5/325 Tab*) 1 tab PO Q6H PRN Vital Signs: Temp Pulse Resp BP Pulse Ox 97.9 F 70 18 107/68 96 10/08/18 03:12 10/08/18 03:12 10/08/18 03:12 10/08/18 03:12 10/08/18 03:12 Oxygen Devices in Use Now: None Appearance: Pt is laying in bed sleeping comfortably. She wakes easily. She is cooperative and appropriate. She is in no acute distress. Eyes: No Scleral Icterus, PERRLA Ears/Nose/Mouth/Throat: NL Teeth, Lips, Gums, Clear Oropharnyx, Mucous Membranes Moist, - - Incision is CDI with small amount of edema. Chvostek's sign negative. Neck: NL Appearance and Movements; NL JVP, Trachea Midline, No Thyroid Enlargement, Masses Respiratory: Symmetrical Chest Expansion and Respiratory Effort, Clear to Auscultation Cardiovascular: NL Sounds; No Murmurs; No JVD, RRR, No Edema Abdominal: NL Sounds; No Tenderness; No Distention, No Hepatosplenomegaly Lymphatic: No Cervical Adenopathy Extremities: No Edema, No Clubbing, Cyanosis Neurological: Alert and Oriented x 3 Result Diagrams: 10/08/18 09:15 10/08/18 09:15 Additional Lab and Data: Abnormal Lab Results 10/07/18 10/07/18 10/07/18 13:40 13:40 19:33 Calcium 6.9 L 7.1 L Magnesium 1.8 L 2.6 PTH Intact 0.1 L Calcium (PTH Intact) 7.0 L 10/07/18 10/08/18 10/08/18 19:33 01:31 01:31 Calcium 7.6 L Magnesium 1.8 L PTH Intact < 0.1 L < 0.1 L Calcium (PTH Intact) 7.4 L 7.5 L Assess/Plan/Problems-Billing Assessment: Pt is a 38yof with PMHx Grave's disease with total thyroidectomy, cerebral palsy , prolapsed bladder, h/o scarlet fever who presents POD4 total thyroidectomy with hypocalcemia and hypoparathyroidism. - Patient Problems (1) Hypoparathyroidism Comment: -2 g Mag given for 0730 magnesium level of 1.5 -Continue treatment of hypocalcemia s/p total thyroidectomy per Dr. Gallardo and Dr. Esparza's recommendations (2) DVT prophylaxis Comment: -Per surgery; pt is ambulating (3) Full code status Status and Disposition: Inpatient. Discharge once calcium WNL and maintained with PO calcium.
--- NOTE | 2018-10-08 08:10 | PN ---
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 She had recurrent Graves' disease and chose surgical management. She had a subtotal thyroidectomy 10/04/2018. She returned to the [facility] [place] [facility] with tetany, hypocalcemia and hypomagnesemia. She has had multiple infusions of calcium and magnesium. She was started on calcitriol 0.5 mcg bid. I started her yesterday on hydrochlorothiazide. I changed her to calcium carbonate suspension - 1,250 mg 5 times per day. This morning she has no symptoms of hypocalcemia at rest. She has had no further tetany or paresthesia. Otherwise, she is feeling well. Her neck feels tight since the surgery. Her voice is normal Active Problems: Active Problems Hypocalcemia (Acute) E83.51 Hypomagnesemia (Acute) E83.42 Hypoparathyroidism (Acute) E20.9 -Awaiting 0730 a.m. -Continue treatment of hypocalcemia s/p total thyroidectomy per Dr. Gallardo's recommendations Post-surgical hypothyroidism (Acute) E89.0 DVT prophylaxis (Chronic) [id number] -Per surgery; pt is ambulating Full code status (Chronic) Z78.9 History of Graves' disease (Chronic) Z86.39 Current Medications: Current Medications Calcitriol (Rocaltrol Cap*) 0.5 mcg PO TID [facility] Last Admin: 10/07/18 21:34 Dose: 0.5 mcg Calcium Carbonate (Calcium Carbonate Liq*) 1,250 mg PO FIVE TIMES DAILY [facility] Last Admin: 10/08/18 05:54 Dose: 1,250 mg Hydrochlorothiazide (Hydrodiuril Tab*) 25 mg PO DAILY [facility] Last Admin: 10/07/18 13:40 Dose: 25 mg Sodium Chloride (Ns 0.9% 1000 Ml) 1,000 mls @ 75 mls/hr IV PER RATE [facility] Last Admin: 10/07/18 20:00 Dose: 75 mls/hr Ibuprofen (Motrin Tab*) 600 mg PO Q6H PRN PRN Reason: PAIN Last Admin: 10/07/18 22:39 Dose: 600 mg Levothyroxine Sodium (Synthroid Tab*) 137 mcg PO DAILY@0600 [facility] Last Admin: 10/08/18 05:54 Dose: 137 mcg Magnesium Oxide (Magox 400 Tab*) 800 mg PO DAILY [facility] Last Admin: 10/08/18 03:05 Dose: 800 mg Ondansetron HCl (Zofran Odt Tab*) 4 mg PO Q8H PRN PRN Reason: NAUSEA/VOMITING Oxycodone/Acetaminophen (Percocet 5/325 Tab*) 1 tab PO Q6H PRN PRN Reason: PAIN Home Medications: Home Medications Medication Instructions Recorded Confirmed Type Methimazole TAB* [Tapazole TAB*] 1.5 tab PO QAM 09/27/18 10/04/18 History Calcium Carbonate [Calci-Chew] 1,250 mg PO Q6H 21 Days chw 10/04/18 10/06/18 Rx Levothyroxine TAB* [Synthroid TAB*] 137 mcg PO 0800 #90 tab 10/04/18 10/06/18 Rx Oxycodone HCl/Acetaminophen 1 each PO Q6H PRN #10 tablet MDD 2 10/04/18 Rx [Percocet 5-325 mg Tablet] TABS Allergies: Allergies Allergy/AdvReac Type Severity Reaction Status Date / Time No Known Allergies Allergy Verified 10/06/18 17:07 Objective - Vital Signs Vital Signs: Vital Signs 10/07/18 10/07/18 10/07/18 11:26 16:23 19:23 Temperature 98.4 F 98.2 F Pulse Rate 69 75 Respiratory 18 18 16 Rate Blood Pressure 119/75 133/79 (mmHg) O2 Sat by Pulse 97 98 Oximetry 10/07/18 10/07/18 10/07/18 20:34 20:58 23:05 Temperature 100.0 F 98.4 F 98.7 F Pulse Rate 86 72 Respiratory 16 16 Rate Blood Pressure 124/88 126/78 (mmHg) O2 Sat by Pulse 96 96 Oximetry 10/08/18 03:12 Temperature 97.9 F Pulse Rate 70 Respiratory 18 Rate Blood Pressure 107/68 (mmHg) O2 Sat by Pulse 96 Oximetry - Intake and Output Intake and Output: Intake & Output 10/05/18 10/06/18 10/07/18 10/08/18 11:59 11:59 11:59 11:59 Intake Total 365 3103 Output Total 1550 1200 Balance -1185 1903 Weight 180 lb Intake: IV Fluids 115 1551 NS 1551 calcium gluconate 60 magnesium 55 IVPB 692 calcium gluconate 225 magnesium 467 Oral 250 860 Output: Urine 1550 1200 Other: Estimated Void Large Date of Last Bowel 10/07/18 10/07/18 Movement # Bowel Movements 1 1 Estimated Stool Amount Small Medium # Voids 1 ADLs: Meal Record Start: 10/06/18 20: 30 Freq: Status: Active Protocol: Created 10/06/18 20:30 System (Rec: 10/06/18 20:30 System SSU-M15) Document 10/07/18 10:29 [id number] (Rec: 10/07/18 10:29 [id number] SSU-C02) Intake and Output Start: 10/06/18 20: 30 Freq: DAILY@0600,1400,2200 Status: Active Protocol: Created 10/06/18 20:30 System (Rec: 10/06/18 20:30 System SSU-M15) Document 10/06/18 23:15 [id number] (Rec: 10/07/18 00:51 [id number] SSU-C12) Document 10/07/18 04:11 [id number] (Rec: 10/07/18 04:11 [id number] SSU-M14) Document 10/07/18 05:52 [id number] (Rec: 10/07/18 05:52 [id number] SSU-M14) Document 10/07/18 08:45 [id number] (Rec: 10/07/18 08:45 [id number] SSU-C02) Document 10/07/18 11:58 [id number] (Rec: 10/07/18 12:15 [id number] SSU-C02) Document 10/07/18 14:44 [id number] (Rec: 10/07/18 14:45 [id number] SSU-C02) Document 10/07/18 20:07 [id number] (Rec: 10/07/18 20:07 [id number] SSU-M07) Document 10/07/18 20:23 [id number] (Rec: 10/07/18 20:23 [id number] SSU-M07) Document 10/07/18 22:00 [id number] (Rec: 10/07/18 22:14 [id number] SSU-M17) Document 10/08/18 03:12 [id number] (Rec: 10/08/18 03:12 [id number] SSU-M07) Document 10/08/18 05:40 [id number] (Rec: 10/08/18 05:41 [id number] SSU-M17) - Physical Exam General Physical Exam Comment: Latent tetany - 20 seconds of BP cuff inflated to 160 mmHg. Chvostek's positive. Normal voice Lungs and Chest: Yes: Chest Expansion Full, Chest Expansion Symetrica, Percussion Note Resonant, Vessicular Breath Sounds Heart Rate and Rhythm: Regular Additional Cardiovascular: Yes: Normal Heart Sounds. No: Heart Murmur, Pedal Edema Abdominal Exam: Yes: Soft. No: Distention, Abdominal Mass, Abdominal Tenderness Results - Results Lab Results: Laboratory Results - last 24 hr 10/07/18 10/07/18 10/07/18 13:40 13:40 19:33 Calcium 6.9 L 7.1 L Magnesium 1.8 L 2.6 PTH Intact 0.1 L Calcium (PTH Intact) 7.0 L 10/07/18 10/08/18 10/08/18 19:33 01:31 01:31 Calcium 7.6 L Magnesium 1.8 L PTH Intact < 0.1 L < 0.1 L Calcium (PTH Intact) 7.4 L 7.5 L Assessment - Problem List Assessment: Patient Problems Hypocalcemia (Acute) Hypomagnesemia (Acute) Hypoparathyroidism (Acute) Post-surgical hypothyroidism (Acute) DVT prophylaxis (Chronic) Full code status (Chronic) History of Graves' disease (Chronic) Plan: Hypocalcemia (Acute) Hypomagnesemia (Acute)Hypoparathyroidism (Acute) Hypoparathyroidism is a common occurrence post subtotal thyroidectomy. The hypocalcemia is due to hypoparathyroidism and also the hungry bone syndrome. Hypomagnesemia is less well understood - it is likely multifactorial. We have initiated aggressive management: * calcium carbonate suspension 1,250 mg 5 times per day po * Calcitriol 0.5 mcg bid * HCTZ 25 mg qdaily She has had acute correction of calcium and magnesium parenterally. This morning she has latent tetany - she hasn't had her calcium measured since 1:30 am. We will continue to treat parenterally when she is symptomatic. However, I anticipate the above measures will work after around 48 hours - though there is a lot of inter-individual variation. Post-surgical hypothyroidism (Acute) She is on an appropriate dose of levothyroxine. DVT prophylaxis (Chronic) Full code status (Chronic) History of Graves' disease (Chronic) I discussed the above with the patient and with Dr. Madison Gallardo.
[2018-10-08] MEDS ORDERED: Calcium Gluconate INJ* 1 GM in NS 0.9% 50 ML* 50 ML IVPB PRN (08:56)
[2018-10-08] MEDS ORDERED: Magnesium Sulfate 2 GM IV (Premix) IVPB PRN (09:01)
[2018-10-08] MEDS: Calcitriol CAP* 0.25 MCG PO SCH ×3 (09:09→22:03)
[2018-10-08] MEDS: Hydrochlorothiazide TAB* 25 MG PO SCH (09:15)
[2018-10-08 09:43] LABS: Hematocrit 36 % (35-47); Hemoglobin 12.2 g/dl (12.0-16.0); Mean Corpuscular HGB Conc 34 g/dl (31-36); Mean Corpuscular Hemoglobin 29 pg (27-31); Mean Corpuscular Volume 86 fL (80-97); Mean Platelet Volume 7.9 fL (7.4-10.4); Platelet Count 217 10^3/ul (150-450); Red Blood Count 4.18 10^6/ul (4.00-5.40); Red Cell Distribution Width 13 % (10.5-15); White Blood Count 8.6 10^3/ul (3.5-10.8)
[2018-10-08 10:05] LABS: BUN/Creatinine Ratio 10.9 (8-20); Calcium 7.3 mg/dL (8.6-10.3); EGFR African American 125.7 (>60); EGFR Non-African American 103.9 (>60); Magnesium 1.5 mg/dL (1.9-2.7); Potassium 4.1 mmol/L (3.5-5.0)
[2018-10-08] MEDS: Ibuprofen TAB* 600 MG PO PRN ×3 (10:43→23:51)
--- NOTE | 2018-10-08 11:35 | PN ---
Progress Note - Progress Note Date of Service: 10/08/18 Note: Surgery Progress Note S: Patient feels well this morning. She still has occasional feelings of cramps and tingling but over all improved. O: Vital Signs: Temp Pulse Resp BP Pulse Ox 98.3 F 69 18 119/67 97 10/08/18 07:38 10/08/18 07:38 10/08/18 08:00 10/08/18 07:38 10/08/18 07:38 Laboratory Last Values WBC 8.6 10^3/ul (3.5-10.8) 10/08/18 09:15 RBC 4.18 10^6/ul (4.00-5.40) 10/08/18 09:15 Hgb 12.2 g/dl (12.0-16.0) 10/08/18 09:15 Hct 36 % (35-47) 10/08/18 09:15 MCV 86 fL (80-97) 10/08/18 09:15 MCH 29 pg (27-31) 10/08/18 09:15 MCHC 34 g/dl (31-36) 10/08/18 09:15 RDW 13 % (10.5-15) 10/08/18 09:15 Plt Count 217 10^3/ul (150-450) 10/08/18 09:15 MPV 7.9 fL (7.4-10.4) 10/08/18 09:15 Neut % (Auto) 60.1 % 10/06/18 17:31 Lymph % (Auto) 28.7 % 10/06/18 17:31 [place] % (Auto) 6.8 % 10/06/18 17:31 Eos % (Auto) 3.2 % 10/06/18 17:31 Baso % (Auto) 1.2 % 10/06/18 17:31 Absolute Neuts (auto) 6.9 10^3/ul (1.5-7.7) 10/06/18 17:31 Absolute Lymphs (auto) 3.3 10^3/ul (1.0-4.8) 10/06/18 17:31 Absolute Monos (auto) 0.8 10^3/ul (0-0.8) 10/06/18 17:31 Absolute Eos (auto) 0.4 10^3/ul (0-0.6) 10/06/18 17:31 Absolute Basos (auto) 0.1 10^3/ul (0-0.2) 10/06/18 17:31 Absolute Nucleated RBC 0 10^3/ul 10/06/18 17:31 Nucleated RBC % 0 10/06/18 17:31 Sodium 137 mmol/L (135-145) 10/08/18 09:15 Potassium 4.1 mmol/L (3.5-5.0) 10/08/18 09:15 Chloride 103 mmol/L (101-111) 10/08/18 09:15 Carbon Dioxide 25 mmol/L (22-32) 10/08/18 09:15 Anion Gap 9 mmol/L (2-11) 10/08/18 09:15 BUN 7 mg/dL (6-24) 10/08/18 09:15 Creatinine 0.64 mg/dL (0.51-0.95) 10/08/18 09:15 Est GFR ( Amer) 125.7 (>60) 10/08/18 09:15 Est GFR (Non-Af Amer) 103.9 (>60) 10/08/18 09:15 BUN/Creatinine Ratio 10.9 (8-20) 10/08/18 09:15 Glucose 118 mg/dL (70-100) H 10/08/18 09:15 Calcium 7.3 mg/dL (8.6-10.3) L 10/08/18 09:15 Ionized Calcium 0.84 mmol/L (1.16-1.32) L 10/07/18 05:09 Magnesium 1.5 mg/dL (1.9-2.7) L 10/08/18 09:15 Total Bilirubin 0.40 mg/dL (0.2-1.0) 10/06/18 17:31 AST 16 U/L (13-39) 10/06/18 17:31 ALT 12 U/L (7-52) 10/06/18 17:31 Alkaline Phosphatase 39 U/L (34-104) 10/06/18 17:31 C-Reactive Protein 2.44 mg/L (<8.01) 10/07/18 05:09 Total Protein 7.0 g/dL (6.4-8.9) 10/06/18 17:31 Albumin 4.0 g/dL (3.2-5.2) 10/06/18 17:31 Globulin 3.0 g/dL (2-4) 10/06/18 17:31 Albumin/Globulin Ratio 1.3 (1-3) 10/06/18 17:31 TSH 3.44 mcIU/mL (0.34-5.60) 10/06/18 17:31 Free T4 0.90 ng/dL (0.61-1.12) 10/06/18 17:31 PTH Intact < 0.1 pmol/L (1.3-9.3) L 10/08/18 09:15 Calcium (PTH Intact) 7.3 mg/dL (8.6-10.3) L 10/08/18 09:15 Intake & Output 10/07/18 10/08/18 10/08/18 22:59 06:59 14:59 Intake Total 862 2031 222 Output Total 500 300 0 Balance 362 1731 222 Intake: IV Fluids 1551 222 NS 1551 222 IVPB 362 120 calcium gluconate 120 magnesium 362 Oral 500 360 Output: Urine 500 300 0 Other: Estimated Void Large Date of Last Bowel 10/07/18 Movement # Bowel Movements 1 Estimated Stool Amount Medium # Voids 1 Physical exam: neck- incision clean, dry, intact, mild swelling around the incision, no drainage A/P: 38 F post op day 4 from total thyroidectomy with hypoparathyroidism, likely stunning of the in situ parathyroids and awaiting functioning of the autotransplanted parathyroids. - Appreciate Dr. Esparza's recommendations and hospitalist's management of hypocalcemia and hypomagnesiumia - Continue IV calcium and IV magnesium repletion and PO calcitriol and calcium carbonate
--- NOTE | 2018-10-08 16:02 | PN ---
Progress Note - Progress Note Date of Service: 10/08/18 SOAP: Subjective: [Pt states that some of her symptoms have returned today. She complains of " pins and needles" in her legs, specifically her anterior lower legs. She also is complaining of tetany in her left hand. She is urinating frequently and has diarrhea. She states that the pain from her surgical incision is a 6/10 while on 600mg ibuprofen q 6hrs. She admits to an overall feeling of fatigue. She denies fever, chills, chest pain, palpitations, SOB, trouble with swallowing or difficulty with urination or passing stool.] Objective: [ Vital Signs Temp 98.6 F 10/08/18 11:48 Pulse 61 10/08/18 11:48 Resp 17 10/08/18 11:48 BP 120/76 10/08/18 11:48 Pulse Ox 98 10/08/18 11:48 Intake & Output 10/07/18 10/08/18 10/08/18 18:59 06:59 18:59 Intake Total 460 2893 737 Output Total 1100 800 0 Balance -640 2093 737 Intake: IV Fluids 1551 327 NS 1551 272 calcium gluconate 55 IVPB 210 482 calcium gluconate 105 120 magnesium 105 362 Oral 250 860 410 Output: Urine 1100 800 0 Other: Estimated Void Large Date of Last Bowel 10/07/18 10/07/18 Movement # Bowel Movements 1 1 Estimated Stool Amount Small Medium # Voids 1 3 General: Pt is a well nourished well developed female who is in no acute distress. Pt has no hoariness of voice in conversation. Neck: Inspection reveals mild edema to the anterior neck. Steri strips are covering her surgical incision from her total thyroidectomy. Dressing is clean, dry and intact. Trachea is midline. No evidence of hematoma formation. Heart: S1, S2. RRR. No M/R/G Lungs: Clear to auscultation throughout. Abdomen: Inspection reveals no distention. Hyperactive bowel sounds noted with auscultation. No tenderness to palpation. Neurological: Pt has carpal spasm to the left hand. Negative Chvostek sign. Pt has feelings of paresthesia to her anterior lower legs, bilaterally continuing from her feet to her knee. Extremities: Mild edema noted to the lower extremities.] Assessment: [38 Female POD#4 s/p total thyroidectomy presenting with hypocalcemia, hypo magnesemia and hypoparathyroidism] -Pts postoperative pain is being managed with 600 mg ibuprofen q 6 hrs. -Diarrhea, carpal spasm of the left hand and feelings of LE paresthesia and fatigue are most likely due to hypocalcemia. Labs analysed at 1332 show Mg - has normalized (2) ref range 1.9-2.7 Ca- 8.0 (low) ref range 8.6-10.3 Intact PTH- 0.1 (low) ref range 1.3-9.3 Plan: [-continue to control pain with 600 mg ibuprofen q 6 hrs -Monitor for symptoms. -Continue to treat hypocalcemia with (per Dr. Esparza): -HCTZ 25mg daily -Calcitriol 0.5mcg BID -Calcium carbonate suspension 1250mg 5 times a day -IV calcium gluconate and IV mg as appropriate]
[2018-10-08] MEDS ORDERED: Calcium Gluconate INJ* 2 GM in NS 0.9% 100 ML* 100 ML IV ONE (18:00)
[2018-10-08 21:44] LABS: Magnesium 1.5 mg/dL (1.9-2.7)
[2018-10-08] MEDS ORDERED: Magnesium Sulfate IV* 3 GM in NS 0.9% 100 ML* 100 ML IVPB ONE (22:01)
[2018-10-09] MEDS: Levothyroxine TAB* 137 MCG TAB PO SCH (06:13)
[2018-10-09] MEDS: Calcium Carbonate LIQ* 1,250 MG/5 ML UDC PO SCH ×5 (06:36→17:10)
[2018-10-09 07:25] LABS: Calcium 8.1 mg/dL (8.6-10.3); Magnesium 1.6 mg/dL (1.9-2.7)
--- NOTE | 2018-10-09 08:11 | PN ---
Subjective - Subjective Reason for Note: Consultation Note History: Endocrinology follow-up. I note she had carpo-pedal spasm yesterday and required parenteral boluses of both Mg and Ca. This morning she felt some tingling when the BP cuff automatically inflated. Active Problems: Active Problems Hypocalcemia (Acute) E83.51 Hypomagnesemia (Acute) E83.42 Hypoparathyroidism (Acute) E20.9 -2 g Mag given for 0730 magnesium level of 1.5 -Continue treatment of hypocalcemia s/p total thyroidectomy per Dr. Gallardo and Dr. Esparza's recommendations Post-surgical hypothyroidism (Acute) E89.0 DVT prophylaxis (Chronic) [id number] -Per surgery; pt is ambulating Full code status (Chronic) Z78.9 History of Graves' disease (Chronic) Z86.39 Current Medications: Current Medications Calcitriol (Rocaltrol Cap*) 0.5 mcg PO TID [facility] Last Admin: 10/08/18 22:03 Dose: 0.5 mcg Calcium Carbonate (Calcium Carbonate Liq*) 2,500 mg PO 0800,1200,1500,1700 [facility] Calcium Carbonate (Calcium Carbonate Liq*) 2,500 mg PO BEDTIME [facility] Hydrochlorothiazide (Hydrodiuril Tab*) 25 mg PO DAILY [facility] Last Admin: 10/08/18 09:15 Dose: 25 mg Calcium Gluconate 1 gm/ Sodium (Chloride) 60 mls @ 60 mls/hr IVPB Q6H PRN PRN Reason: SEE LABEL COMMENTS Last Admin: 10/08/18 13:00 Dose: 60 mls/hr Magnesium Sulfate (Magnesium Sulfate 2 Gm Iv*) 2 gm in 50 mls @ 50 mls/hr IVPB Q6H PRN PRN Reason: MAGNESIUM <1.5 Last Admin: 10/08/18 10:44 Dose: 50 mls/hr Ibuprofen (Motrin Tab*) 600 mg PO Q6H PRN PRN Reason: PAIN Last Admin: 10/08/18 23:51 Dose: 600 mg Levothyroxine Sodium (Synthroid Tab*) 137 mcg PO DAILY@0600 [facility] Last Admin: 10/09/18 06:13 Dose: 137 mcg Magnesium Oxide (Magox 400 Tab*) 800 mg PO DAILY [facility] Last Admin: 10/08/18 09:15 Dose: 800 mg Ondansetron HCl (Zofran Odt Tab*) 4 mg PO Q8H PRN PRN Reason: NAUSEA/VOMITING Oxycodone/Acetaminophen (Percocet 5/325 Tab*) 1 tab PO Q6H PRN PRN Reason: PAIN Home Medications: Home Medications Medication Instructions Recorded Confirmed Type Methimazole TAB* [Tapazole TAB*] 1.5 tab PO QAM 09/27/18 10/04/18 History Calcium Carbonate [Calci-Chew] 1,250 mg PO Q6H 21 Days chw 10/04/18 10/06/18 Rx Levothyroxine TAB* [Synthroid TAB*] 137 mcg PO 0800 #90 tab 10/04/18 10/06/18 Rx Oxycodone HCl/Acetaminophen 1 each PO Q6H PRN #10 tablet MDD 2 10/04/18 Rx [Percocet 5-325 mg Tablet] TABS Allergies: Allergies Allergy/AdvReac Type Severity Reaction Status Date / Time No Known Allergies Allergy Verified 10/06/18 17:07 Objective - Vital Signs Vital Signs: Vital Signs 10/08/18 10/08/18 10/08/18 11:48 15:38 19:44 Temperature 98.6 F 98.2 F 98.4 F Pulse Rate 61 72 69 Respiratory 17 16 18 Rate Blood Pressure 120/76 120/77 118/76 (mmHg) O2 Sat by Pulse 98 100 97 Oximetry 10/08/18 10/08/18 10/09/18 19:58 23:49 04:01 Temperature 98.6 F 98.6 F Pulse Rate 64 73 Respiratory 16 16 18 Rate Blood Pressure 133/71 106/65 (mmHg) O2 Sat by Pulse 96 98 Oximetry - Intake and Output Intake and Output: Intake & Output 10/06/18 10/07/18 10/08/18 10/09/18 11:59 11:59 11:59 11:59 Intake Total 365 3325 2082 Output Total 1550 1200 Balance -1185 2124 2081 Weight 180 lb Intake: IV Fluids 115 1773 105 NS 1773 50 calcium gluconate 60 55 magnesium 55 IVPB 692 117 calcium gluconate 225 magnesium 467 117 Oral 363 393 3424 Output: Urine 1550 1200 Other: Estimated Void Large Large Date of Last Bowel 10/07/18 10/07/18 Movement # Bowel Movements 1 1 Estimated Stool Amount Small Medium # Voids 1 1 ADLs: Meal Record Start: 10/06/18 20: 30 Freq: Status: Active Protocol: Created 10/06/18 20:30 System (Rec: 10/06/18 20:30 System SSU-M15) Document 10/07/18 10:29 [id number] (Rec: 10/07/18 10:29 [id number] SSU-C02) Document 10/08/18 13:33 [id number] (Rec: 10/08/18 13:33 [id number] SSU-C03) Document 10/08/18 21:27 [id number] (Rec: 10/08/18 21:27 [id number] SSU-M18) Intake and Output Start: 10/06/18 20: 30 Freq: DAILY@0600,1400,2200 Status: Active Protocol: Created 10/06/18 20:30 System (Rec: 10/06/18 20:30 System SSU-M15) Document 10/06/18 23:15 [id number] (Rec: 10/07/18 00:51 [id number] SSU-C12) Document 10/07/18 04:11 [id number] (Rec: 10/07/18 04:11 [id number] SSU-M14) Document 10/07/18 05:52 [id number] (Rec: 10/07/18 05:52 [id number] SSU-M14) Document 10/07/18 08:45 [id number] (Rec: 10/07/18 08:45 [id number] SSU-C02) Document 10/07/18 11:58 [id number] (Rec: 10/07/18 12:15 [id number] SSU-C02) Document 10/07/18 14:44 [id number] (Rec: 10/07/18 14:45 [id number] SSU-C02) Document 10/07/18 20:07 [id number] (Rec: 10/07/18 20:07 [id number] SSU-M07) Document 10/07/18 20:23 [id number] (Rec: 10/07/18 20:23 [id number] SSU-M07) Document 10/07/18 22:00 [id number] (Rec: 10/07/18 22:14 [id number] SSU-M17) Document 10/08/18 03:12 [id number] (Rec: 10/08/18 03:12 [id number] SSU-M07) Document 10/08/18 05:40 [id number] (Rec: 10/08/18 05:41 [id number] SSU-M17) Document 10/08/18 14:00 [id number] (Rec: 10/08/18 14:15 [id number] SSU-C03) Document 10/08/18 22:00 [id number] (Rec: 10/08/18 23:15 [id number] SSU-C12) Document 10/08/18 23:33 [id number] (Rec: 10/08/18 23:33 [id number] SSU-M18) Document 10/09/18 05:59 [id number] (Rec: 10/09/18 05:59 [id number] SSU-L02) Results - Results Lab Results: Laboratory Results - last 24 hr 10/08/18 10/08/18 10/08/18 09:15 09:15 09:15 WBC 8.6 RBC 4.18 Hgb 12.2 Hct 36 MCV 86 MCH 29 MCHC 34 RDW 13 Plt Count 217 MPV 7.9 Sodium 137 Potassium 4.1 Chloride 103 Carbon Dioxide 25 Anion Gap 9 BUN 7 Creatinine 0.64 Est GFR ( Amer) 125.7 Est GFR (Non-Af Amer) 103.9 BUN/Creatinine Ratio 10.9 Glucose 118 H Calcium 7.3 L Magnesium 1.5 L PTH Intact < 0.1 L Calcium (PTH Intact) 7.3 L 10/08/18 10/08/18 10/08/18 13:32 13:32 20:14 WBC RBC Hgb Hct MCV MCH MCHC RDW Plt Count MPV Sodium Potassium Chloride Carbon Dioxide Anion Gap BUN Creatinine Est GFR ( Amer) Est GFR (Non-Af Amer) BUN/Creatinine Ratio Glucose Calcium 8.0 L 9.0 Magnesium 2.0 1.5 L PTH Intact 0.1 L Calcium (PTH Intact) 8.0 L 10/08/18 10/09/18 10/09/18 20:14 06:46 06:46 WBC RBC Hgb Hct MCV MCH MCHC RDW Plt Count MPV Sodium Potassium Chloride Carbon Dioxide Anion Gap BUN Creatinine Est GFR ( Amer) Est GFR (Non-Af Amer) BUN/Creatinine Ratio Glucose Calcium 8.1 L Magnesium 1.6 L PTH Intact < 0.1 L < 0.1 L Calcium (PTH Intact) 8.8 8.1 L Assessment - Problem List Assessment: Patient Problems Hypocalcemia (Acute) Hypomagnesemia (Acute) Hypoparathyroidism (Acute) Post-surgical hypothyroidism (Acute) DVT prophylaxis (Chronic) Full code status (Chronic) History of Graves' disease (Chronic) Plan: Hypocalcemia (Acute) We have stepped up the dose of calcium carbonate. I am expecting improvement in the next 24 - 48 hours and do not expect much demand for parenteral calcium Hypomagnesemia (Acute) This was a major problem yesterday. I discussed with the patient the effect of thiazide diuretics on magnesium excretion - it is a minimal effect*. However, the addition of a potassium sparing diuretic will help retention of magnesium. So, for convenience sake, I will start her on dyazide. Hypoparathyroidism (Acute) At least 2 of these glands are likely to recover over time - we will hopefully be able to wean her off the medication as an outpatient Post-surgical hypothyroidism (Acute) They are the Calcium carbonate from the LT4 *Am J Physiol Renal Physiol. 2017 Feb 01;312(6):D292-U0280. doi: 10.1152/ [email or web address]. Epub 2016 8. Effect of diuretics on renal tubular transport of calcium and magnesium. Cyrus RT1,2, Karie H3. Author information Abstract Calcium (Ca2+) and Magnesium (Mg2+) reabsorption along the renal tubule is dependent on distinct trans- and paracellular pathways. Our understanding of the molecular machinery involved is increasing. Ca2+ and Mg2+ reclamation in kidney is dependent on a diverse array of proteins, which are important for both forming divalent cation-permeable pores and channels, but also for generating the necessary driving forces for Ca2+ and Mg2+ transport. Alterations in these molecular constituents can have profound effects on tubular Ca2+ and Mg2+ handling. Diuretics are used to treat a large range of clinical conditions, but most commonly for the management of blood pressure and fluid balance. The pharmacological targets of diuretics generally directly facilitate sodium (Na+) transport, but also indirectly affect renal Ca2+ and Mg2 + handling, i.e., by establishing a prerequisite electrochemical gradient. It is therefore not surprising that substantial alterations in divalent cation handling can be observed following diuretic treatment. The effects of diuretics on renal Ca2+ and Mg2+ handling are reviewed in the context of the present understanding of basal molecular mechanisms of Ca2+ and Mg2+ transport. Acetazolamide, osmotic diuretics, Na+/H+ exchanger (NHE3) inhibitors, and antidiabetic Na+/glucose cotransporter type 2 (SGLT) blocking compounds, target the proximal tubule, where paracellular Ca2+ transport predominates. Loop diuretics and renal outer medullary K+ (ROMK) inhibitors block thick ascending limb transport, a segment with significant paracellular Ca2+ and Mg2+ transport. Thiazides target the distal convoluted tubule; however, their effect on divalent cation transport is not limited to that segment. Finally, potassium- sparing diuretics, which inhibit electrogenic Na+ transport at distal sites, can also affect divalent cation transport. Copyright 2017 the [employer] [employer]. I have placed a print out of this paper in the chart - relevant pages highlighted [id number] and [id number]
[2018-10-09] MEDS: Magnesium Oxide TAB* 400 MG PO SCH (08:50)
[2018-10-09] MEDS: Ibuprofen TAB* 600 MG PO PRN ×3 (08:50→22:24)
[2018-10-09] MEDS: Triamterene/HCTZ 37.5-25 MG* CAP PO SCH (08:50)
[2018-10-09] MEDS: Calcitriol CAP* 0.25 MCG PO SCH ×3 (08:50→21:28)
--- NOTE | 2018-10-09 09:11 | PN ---
Subjective Date of Service: 10/09/18 Interval History: Pt has intermittent paresthesias and cramping. This morning, she notes that this is occurring in her foot up to her mid-calf. She states that it is not painful, just irritating, and it feels like her foot is "curled." She had some diarrhea yesterday, but eventually had a formed stool yesterday; she reports no BM yet today. She has no difficulty with eating, drinking, swallowing, breathing. She states that her neck feels "tight" and "short." She denies tetany, although feels that she has twitching in her hands and feet. She denies CP, SOB, fever, cough, abdominal pain, cramping, n/v, pain in the extremities. Objective Active Medications: Calcitriol (Rocaltrol Cap*) 0.5 mcg PO TID [facility] Calcium Carbonate (Calcium Carbonate Liq*) 2,500 mg PO 0800,1200,1500,1700 [facility] Calcium Carbonate (Calcium Carbonate Liq*) 2,500 mg PO BEDTIME [facility] Calcium Gluconate 1 gm/ Sodium (Chloride) 60 mls @ 60 mls/hr IVPB Q6H PRN Magnesium Sulfate (Magnesium Sulfate 2 Gm Iv*) 2 gm in 50 mls @ 50 mls/hr IVPB Q6H PRN Ibuprofen (Motrin Tab*) 600 mg PO Q6H PRN Levothyroxine Sodium (Synthroid Tab*) 137 mcg PO DAILY@0600 [facility] Magnesium Oxide (Magox 400 Tab*) 800 mg PO DAILY [facility] Ondansetron HCl (Zofran Odt Tab*) 4 mg PO Q8H PRN Oxycodone/Acetaminophen (Percocet 5/325 Tab*) 1 tab PO Q6H PRN Triamterene/HCTZ (Dyazide Cap*) 1 cap PO DAILY [facility] Vital Signs: Temp Pulse Resp BP Pulse Ox 98.4 F 83 17 130/76 98 10/09/18 07:50 10/09/18 07:50 10/09/18 07:50 10/09/18 07:50 10/09/18 07:50 Oxygen Devices in Use Now: None Appearance: Pt is sitting up in bed getting ready to eat breakfast. She appears well and is in no acute distress. She is cooperative and appropriate. Eyes: No Scleral Icterus, PERRLA Ears/Nose/Mouth/Throat: NL Teeth, Lips, Gums, Clear Oropharnyx, Mucous Membranes Moist, - - Chvostek's sign +. Neck: NL Appearance and Movements; NL JVP, Trachea Midline, - - Thyroidectomy incision dressing is CDI without erythema. There is a small amount of surrounding edema. Respiratory: Symmetrical Chest Expansion and Respiratory Effort, Clear to Auscultation Cardiovascular: NL Sounds; No Murmurs; No JVD, RRR, No Edema Abdominal: NL Sounds; No Tenderness; No Distention, No Hepatosplenomegaly Extremities: No Edema, No Clubbing, Cyanosis, - - B/l calves without edema, nontender to palpation. Radial, pedal pulses 2+ b/l. Neurological: Alert and Oriented x 3 Result Diagrams: 10/08/18 09:15 10/08/18 09:15 Assess/Plan/Problems-Billing Assessment: Pt is a 38yof with PMHx Grave's disease with total thyroidectomy, cerebral palsy , prolapsed bladder, h/o scarlet fever who presents POD4 total thyroidectomy with hypocalcemia and hypoparathyroidism. - Patient Problems (1) Hypoparathyroidism Comment: -Ca, Mg labs trending upward -Dyazide ordered in hopes of retaining magnesium -Continue treatment of hypocalcemia s/p total thyroidectomy per Dr. Gallardo and Dr. Esparza's recommendations (2) DVT prophylaxis Comment: -Per surgery; pt is ambulating (3) Full code status Status and Disposition: Inpatient. Discharge once calcium WNL and maintained with PO calcium.
--- NOTE | 2018-10-09 10:57 | PN ---
Progress Note - Progress Note Date of Service: 10/09/18 Note: Surgery Progress Note S: Patient feels well this morning. She had some tingling in her feet earlier in the morning. She last had IV calcium last night. O: Vital Signs: Temp Pulse Resp BP Pulse Ox 98.4 F 83 17 130/76 98 10/09/18 07:50 10/09/18 07:50 10/09/18 07:50 10/09/18 07:50 10/09/18 07:50 Laboratory Last Values WBC 8.6 10^3/ul (3.5-10.8) 10/08/18 09:15 RBC 4.18 10^6/ul (4.00-5.40) 10/08/18 09:15 Hgb 12.2 g/dl (12.0-16.0) 10/08/18 09:15 Hct 36 % (35-47) 10/08/18 09:15 MCV 86 fL (80-97) 10/08/18 09:15 MCH 29 pg (27-31) 10/08/18 09:15 MCHC 34 g/dl (31-36) 10/08/18 09:15 RDW 13 % (10.5-15) 10/08/18 09:15 Plt Count 217 10^3/ul (150-450) 10/08/18 09:15 MPV 7.9 fL (7.4-10.4) 10/08/18 09:15 Neut % (Auto) 60.1 % 10/06/18 17:31 Lymph % (Auto) 28.7 % 10/06/18 17:31 [place] % (Auto) 6.8 % 10/06/18 17:31 Eos % (Auto) 3.2 % 10/06/18 17:31 Baso % (Auto) 1.2 % 10/06/18 17:31 Absolute Neuts (auto) 6.9 10^3/ul (1.5-7.7) 10/06/18 17:31 Absolute Lymphs (auto) 3.3 10^3/ul (1.0-4.8) 10/06/18 17:31 Absolute Monos (auto) 0.8 10^3/ul (0-0.8) 10/06/18 17:31 Absolute Eos (auto) 0.4 10^3/ul (0-0.6) 10/06/18 17:31 Absolute Basos (auto) 0.1 10^3/ul (0-0.2) 10/06/18 17:31 Absolute Nucleated RBC 0 10^3/ul 10/06/18 17:31 Nucleated RBC % 0 10/06/18 17:31 Sodium 137 mmol/L (135-145) 10/08/18 09:15 Potassium 4.1 mmol/L (3.5-5.0) 10/08/18 09:15 Chloride 103 mmol/L (101-111) 10/08/18 09:15 Carbon Dioxide 25 mmol/L (22-32) 10/08/18 09:15 Anion Gap 9 mmol/L (2-11) 10/08/18 09:15 BUN 7 mg/dL (6-24) 10/08/18 09:15 Creatinine 0.64 mg/dL (0.51-0.95) 10/08/18 09:15 Est GFR ( Amer) 125.7 (>60) 10/08/18 09:15 Est GFR (Non-Af Amer) 103.9 (>60) 10/08/18 09:15 BUN/Creatinine Ratio 10.9 (8-20) 10/08/18 09:15 Glucose 118 mg/dL (70-100) H 10/08/18 09:15 Calcium 8.1 mg/dL (8.6-10.3) L 10/09/18 06:46 Ionized Calcium 0.84 mmol/L (1.16-1.32) L 10/07/18 05:09 Magnesium 1.6 mg/dL (1.9-2.7) L 10/09/18 06:46 Total Bilirubin 0.40 mg/dL (0.2-1.0) 10/06/18 17:31 AST 16 U/L (13-39) 10/06/18 17:31 ALT 12 U/L (7-52) 10/06/18 17:31 Alkaline Phosphatase 39 U/L (34-104) 10/06/18 17:31 C-Reactive Protein 2.44 mg/L (<8.01) 10/07/18 05:09 Total Protein 7.0 g/dL (6.4-8.9) 10/06/18 17:31 Albumin 4.0 g/dL (3.2-5.2) 10/06/18 17:31 Globulin 3.0 g/dL (2-4) 10/06/18 17:31 Albumin/Globulin Ratio 1.3 (1-3) 10/06/18 17:31 TSH 3.44 mcIU/mL (0.34-5.60) 10/06/18 17:31 Free T4 0.90 ng/dL (0.61-1.12) 10/06/18 17:31 PTH Intact < 0.1 pmol/L (1.3-9.3) L 10/09/18 06:46 Calcium (PTH Intact) 8.1 mg/dL (8.6-10.3) L 10/09/18 06:46 Intake & Output 10/08/18 10/09/18 10/09/18 22:59 06:59 14:59 Intake Total 100 1467 Balance 100 1467 Intake: IVPB 117 magnesium 117 Oral 100 1350 Other: Estimated Void Large # Voids 3 1 Physical exam: neck- slight swelling around dressing, no tenderness, no erythema A/P: 38 F sp total thyroidectomy with hypoparathyroidism. - Continue PO calcium carbonate suspension 2500mg QID (doubled dose last night) ad calcitriol 0.5mcg TID - Will try to withhhold IV calcium and give PO calcium PRN - Continue Q6H Calcium and Mg checks
--- NOTE | 2018-10-09 11:17 | PN ---
Progress Note - Progress Note Date of Service: 10/09/18 SOAP: Subjective: [Today Dorcas feels much better than she was feeling yesterday. She has no complaints at this time other than a 4/10 pain of her surgical incision from her total thyroidectomy and mild cramping in her legs when she was walking around the unit this morning. She also complains of neck muscle soreness which she believes is due to her neck positioning during the recovery thus far from her surgery. She also mentioned that she felt her voice was slightly hoarse as of late. Currently her pain is being managed on 600 mg of ibuprofen q 6 hrs. She states that she had her first solid bowel movement this morning and is tolerating a regular diet well. No complains of "pins and needles" and no apparent signs of carpal/ pedal spasms. Denies fever, chills, chest pain, SOB, abdominal pain, difficulty with BMs or urination.] Objective: [ Vital Signs Temp 98.4 F 10/09/18 07:50 Pulse 83 10/09/18 07:50 Resp 17 10/09/18 07:50 BP 130/76 10/09/18 07:50 Pulse Ox 98 10/09/18 07:50 Intake & Output 10/08/18 10/09/18 10/09/18 18:59 06:59 18:59 Intake Total 737 1567 Output Total 0 Balance 737 1567 Intake: IV Fluids 327 NS 272 calcium gluconate 55 IVPB 117 magnesium 117 Oral 410 1450 Output: Urine 0 Other: Estimated Void Large # Voids 3 1 General: Pt is a well appearing, well nourished female who is dressed in street clothes on her hospital bed in good spirits. Heart: S1, S2. RRR. No M/R/G Lungs: Clear to auscultation throughout Abdomen: Bowel sounds normoactive. No tenderness to palpation. Neurological: Negative chvostek's signs. Sensation to light touch is intact throughout the upper and lower extremities, bilaterally.] Assessment: [38 y/o female POD#5 s/p total thyroidectomy presenting with hypoparathyroidism , hypocalcemia and hypomagnesemia. Laboratory Results - last 24 hr 10/08/18 10/08/18 10/08/18 13:32 13:32 20:14 Calcium 8.0 L 9.0 Magnesium 2.0 1.5 L PTH Intact 0.1 L Calcium (PTH Intact) 8.0 L 10/08/18 10/09/18 10/09/18 20:14 06:46 06:46 Calcium 8.1 L Magnesium 1.6 L PTH Intact < 0.1 L < 0.1 L Calcium (PTH Intact) 8.8 8.1 L Pt still has hypocalcemia, hypomagnesemia and hypoparathyroidism. Her calcium levels have been improving everyday. Yesterday she was given a bolus of calcium gluconate and magnesium due to symptomatic carpal/ pedal spams.] Plan: [-Continue to control pain with 600mg ibuprofen q 6 hours -continue to monitor serum calcium and magnesium levels q6 hours, and to watch for symptoms of hypocalcemia. -Attempt to control hypocalcemia with PO calcium supplementation, vitamin D, HCTZ and triamterene diuretics. -Discharge if pt serum calcium returns to normal levels and pt remains asymptomatic without the need for IV calcium and magnesium.] Medications administered: Calcitriol (Rocaltrol Cap*) 0.5 mcg PO TID [facility] Last Admin: 10/09/18 08:50 Dose: 0.5 mcg Calcium Carbonate (Calcium Carbonate Liq*) 2,500 mg PO 0800,1200,1500,1700 [facility] Last Admin: 10/09/18 08:55 Dose: 2,500 mg Calcium Carbonate (Calcium Carbonate Liq*) 2,500 mg PO BEDTIME [facility] Calcium Gluconate 1 gm/ Sodium (Chloride) 60 mls @ 60 mls/hr IVPB Q6H PRN PRN Reason: SEE LABEL COMMENTS Last Admin: 10/08/18 13:00 Dose: 60 mls/hr Magnesium Sulfate (Magnesium Sulfate 2 Gm Iv*) 2 gm in 50 mls @ 50 mls/hr IVPB Q6H PRN PRN Reason: MAGNESIUM <1.5 Last Admin: 10/08/18 10:44 Dose: 50 mls/hr Ibuprofen (Motrin Tab*) 600 mg PO Q6H PRN PRN Reason: PAIN Last Admin: 10/09/18 08:50 Dose: 600 mg Levothyroxine Sodium (Synthroid Tab*) 137 mcg PO DAILY@0600 [facility] Last Admin: 10/09/18 06:13 Dose: 137 mcg Magnesium Oxide (Magox 400 Tab*) 800 mg PO DAILY [facility] Last Admin: 10/09/18 08:50 Dose: 800 mg Ondansetron HCl (Zofran Odt Tab*) 4 mg PO Q8H PRN PRN Reason: NAUSEA/VOMITING Oxycodone/Acetaminophen (Percocet 5/325 Tab*) 1 tab PO Q6H PRN PRN Reason: PAIN Triamterene/HCTZ (Dyazide Cap*) 1 cap PO DAILY [facility] Last Admin: 10/09/18 08:50 Dose: 1 cap
[2018-10-09 12:46] LABS: Calcium 8.4 mg/dL (8.6-10.3); Magnesium 1.7 mg/dL (1.9-2.7)
[2018-10-09 19:33] LABS: Magnesium 1.7 mg/dL (1.9-2.7)
[2018-10-09] MEDS ORDERED: Calcium Carbonate LIQ* 1,250 MG/5 ML UDC PO SCH (21:00)
[2018-10-10] MEDS: Levothyroxine TAB* 137 MCG TAB PO SCH (06:05)
[2018-10-10 06:21] LABS: Hematocrit 40 % (35-47); Hemoglobin 13.1 g/dl (12.0-16.0); Mean Corpuscular HGB Conc 33 g/dl (31-36); Mean Corpuscular Hemoglobin 29 pg (27-31); Mean Corpuscular Volume 87 fL (80-97); Mean Platelet Volume 8.1 fL (7.4-10.4); Platelet Count 260 10^3/ul (150-450); Red Blood Count 4.61 10^6/ul (4.00-5.40); Red Cell Distribution Width 13 % (10.5-15); White Blood Count 9.9 10^3/ul (3.5-10.8)
[2018-10-10 06:36] LABS: BUN/Creatinine Ratio 14.9 (8-20); Calcium 8.8 mg/dL (8.6-10.3); EGFR African American 119.2 (>60); EGFR Non-African American 98.5 (>60); Magnesium 1.6 mg/dL (1.9-2.7); Potassium 3.9 mmol/L (3.5-5.0)
--- NOTE | 2018-10-10 07:58 | PN ---
Subjective - Subjective Reason for Note: Consultation Note History: Endocrinology: She had some finger tingling last night, but has not received parental calcium for more than 24 hours. Active Problems: Active Problems Hypocalcemia (Acute) E83.51 Hypomagnesemia (Acute) E83.42 Hypoparathyroidism (Acute) E20.9 -Ca, Mg labs trending upward -Dyazide ordered in hopes of retaining magnesium -Continue treatment of hypocalcemia s/p total thyroidectomy per Dr. Gallardo and Dr. Esparza's recommendations Post-surgical hypothyroidism (Acute) E89.0 DVT prophylaxis (Chronic) [id number] -Per surgery; pt is ambulating Full code status (Chronic) Z78.9 History of Graves' disease (Chronic) Z86.39 Current Medications: Current Medications Calcitriol (Rocaltrol Cap*) 0.5 mcg PO TID [facility] Last Admin: 10/09/18 21:28 Dose: 0.5 mcg Calcium Carbonate (Calcium Carbonate Liq*) 2,500 mg PO 0800,1200,1500,1700 [facility] Last Admin: 10/09/18 17:10 Dose: 2,500 mg Calcium Carbonate (Calcium Carbonate Liq*) 2,500 mg PO BEDTIME [facility] Last Admin: 10/09/18 21:29 Dose: 2,500 mg Calcium Gluconate 1 gm/ Sodium (Chloride) 60 mls @ 60 mls/hr IVPB Q6H PRN PRN Reason: SEE LABEL COMMENTS Last Admin: 10/08/18 13:00 Dose: 60 mls/hr Magnesium Sulfate (Magnesium Sulfate 2 Gm Iv*) 2 gm in 50 mls @ 50 mls/hr IVPB Q6H PRN PRN Reason: MAGNESIUM <1.5 Last Admin: 10/08/18 10:44 Dose: 50 mls/hr Ibuprofen (Motrin Tab*) 600 mg PO Q6H PRN PRN Reason: PAIN Last Admin: 10/09/18 22:24 Dose: 600 mg Levothyroxine Sodium (Synthroid Tab*) 137 mcg PO DAILY@0600 [facility] Last Admin: 10/10/18 06:05 Dose: 137 mcg Magnesium Oxide (Magox 400 Tab*) 800 mg PO DAILY [facility] Last Admin: 10/09/18 08:50 Dose: 800 mg Ondansetron HCl (Zofran Odt Tab*) 4 mg PO Q8H PRN PRN Reason: NAUSEA/VOMITING Oxycodone/Acetaminophen (Percocet 5/325 Tab*) 1 tab PO Q6H PRN PRN Reason: PAIN Triamterene/HCTZ (Dyazide Cap*) 1 cap PO DAILY [facility] Last Admin: 10/09/18 08:50 Dose: 1 cap Home Medications: Home Medications Medication Instructions Recorded Confirmed Type Methimazole TAB* [Tapazole TAB*] 1.5 tab PO QAM 09/27/18 10/04/18 History Calcium Carbonate [Calci-Chew] 1,250 mg PO Q6H 21 Days chw 10/04/18 10/06/18 Rx Levothyroxine TAB* [Synthroid TAB*] 137 mcg PO 0800 #90 tab 10/04/18 10/06/18 Rx Oxycodone HCl/Acetaminophen 1 each PO Q6H PRN #10 tablet MDD 2 10/04/18 Rx [Percocet 5-325 mg Tablet] TABS Allergies: Allergies Allergy/AdvReac Type Severity Reaction Status Date / Time No Known Allergies Allergy Verified 10/06/18 17:07 Objective - Vital Signs Vital Signs: Vital Signs 10/09/18 10/09/18 10/09/18 07:50 08:00 11:36 Temperature 98.4 F 98.5 F Pulse Rate 83 86 Respiratory 17 17 16 Rate Blood Pressure 130/76 129/80 (mmHg) O2 Sat by Pulse 98 97 Oximetry 10/09/18 10/09/18 10/09/18 17:00 19:31 20:32 Temperature 98.3 F 98.4 F Pulse Rate 78 74 Respiratory 18 18 18 Rate Blood Pressure 122/80 131/85 (mmHg) O2 Sat by Pulse 99 100 Oximetry 10/10/18 10/10/18 00:10 04:26 Temperature 98.8 F 98.3 F Pulse Rate 81 77 Respiratory 16 16 Rate Blood Pressure 131/76 100/62 (mmHg) O2 Sat by Pulse 98 96 Oximetry - Intake and Output Intake and Output: Intake & Output 10/07/18 10/08/18 10/09/18 10/10/18 11:59 11:59 11:59 11:59 Intake Total 365 3325 2082 1530 Output Total 1550 1200 0 Balance -1185 2124 2081 1530 Weight 180 lb Intake: IV Fluids 115 1773 105 NS 1773 50 calcium gluconate 60 55 magnesium 55 IVPB 692 117 calcium gluconate 225 magnesium 467 117 Oral 226 021 8962 1530 Output: Urine 1550 1200 0 Other: Estimated Void Large Large Large Date of Last Bowel 10/07/18 10/07/18 Movement # Bowel Movements 1 1 Estimated Stool Amount Small Medium # Voids 1 1 3 ADLs: Meal Record Start: 10/06/18 20: 30 Freq: Status: Active Protocol: Created 10/06/18 20:30 System (Rec: 10/06/18 20:30 System [id number]-M15) Document 10/07/18 10:29 [id number] (Rec: 10/07/18 10:29 [id number] SSU-C02) Document 10/08/18 13:33 [id number] (Rec: 10/08/18 13:33 [id number] S[facility]-C03) Document 10/08/18 21:27 [id number] (Rec: 10/08/18 21:27 [id number] S[facility]-M18) Intake and Output Start: 10/06/18 20: 30 Freq: DAILY@0600,1400,2200 Status: Active Protocol: Created 10/06/18 20:30 System (Rec: 10/06/18 20:30 System SSU-M15) Document 10/06/18 23:15 [id number] (Rec: 10/07/18 00:51 [id number] S[facility]-C12) Document 10/07/18 04:11 [id number] (Rec: 10/07/18 04:11 [id number] SSU-M14) Document 10/07/18 05:52 [id number] (Rec: 10/07/18 05:52 [id number] SSU-M14) Document 10/07/18 08:45 [id number] (Rec: 10/07/18 08:45 [id number] [facility]-C02) Document 10/07/18 11:58 [id number] (Rec: 10/07/18 12:15 [id number] [facility]-C02) Document 10/07/18 14:44 [id number] (Rec: 10/07/18 14:45 [id number] SSU-C02) Document 10/07/18 20:07 [id number] (Rec: 10/07/18 20:07 [id number] S[facility]-M07) Document 10/07/18 20:23 [id number] (Rec: 10/07/18 20:23 [id number] SSU-M07) Document 10/07/18 22:00 [id number] (Rec: 10/07/18 22:14 [id number] SSU-M17) Document 10/08/18 03:12 [id number] (Rec: 10/08/18 03:12 [id number] S[facility]-M07) Document 10/08/18 05:40 [id number] (Rec: 10/08/18 05:41 [id number] SSU-M17) Document 10/08/18 14:00 [id number] (Rec: 10/08/18 14:15 [id number] SSU-C03) Document 10/08/18 22:00 [id number] (Rec: 10/08/18 23:15 [id number] S[facility]-C12) Document 10/08/18 23:33 [id number] (Rec: 10/08/18 23:33 [id number] S[facility]-M18) Document 10/09/18 05:59 [id number] (Rec: 10/09/18 05:59 [id number] SSU-L02) Document 10/09/18 13:22 [id number] (Rec: 10/09/18 13:22 [id number] S[facility]-C03) Document 10/09/18 22:00 [id number] (Rec: 10/09/18 22:26 [id number] S[facility]-M14) Document 10/10/18 00:29 [id number] (Rec: 10/10/18 00:29 [id number] S[facility]-M18) Document 10/10/18 05:28 [id number] (Rec: 10/10/18 05:28 [id number] [facility]-L02) Results - Results Lab Results: Laboratory Results - last 24 hr 10/09/18 10/09/18 10/09/18 06:46 12:01 18:59 WBC RBC Hgb Hct MCV MCH MCHC RDW Plt Count MPV Sodium Potassium Chloride Carbon Dioxide Anion Gap BUN Creatinine Est GFR ( Amer) Est GFR (Non-Af Amer) BUN/Creatinine Ratio Glucose Calcium 8.4 L 9.0 Magnesium 1.7 L 1.7 L PTH Intact < 0.1 L 02/07/19 02/07/19 02/07/19 00:19 05:32 05:32 WBC 9.9 RBC 4.61 Hgb 13.1 Hct 40 MCV 87 MCH 29 MCHC 33 RDW 13 Plt Count 260 MPV 8.1 Sodium 137 Potassium 3.9 Chloride 103 Carbon Dioxide 26 Anion Gap 8 BUN 10 Creatinine 0.67 Est GFR ( Amer) 119.2 Est GFR (Non-Af Amer) 98.5 BUN/Creatinine Ratio 14.9 Glucose 103 H Calcium 8.8 Magnesium 1.6 L 1.6 L PTH Intact Assessment - Problem List Assessment: Patient Problems Hypocalcemia (Acute) Hypomagnesemia (Acute) Hypoparathyroidism (Acute) Post-surgical hypothyroidism (Acute) DVT prophylaxis (Chronic) Full code status (Chronic) History of Graves' disease (Chronic) Plan: She is now eucalcemic. Her magnesium is a little low. However, I think she is ready for discharge. My main concern now is an overshoot in her calcium. Here are my recommendations: 1. Calcium carbonate 2,500 mg 5 times per day - I will taper rapidly 2. Calcitriol 0.5 mcg bid 3. Magox 400 mg tid 4. Dyazide 37.5/25 one tablet qam 5. Standing order for BMP and Mg -I will arrange 6. Levothyroxine 7. Endocrinology (i.e. me) should follow - I am targeting acquisition officer this weekend. 8. Endocrinology follow up appt next week I have discussed this with the patient. She will call me if she develops significant symptoms.
[2018-10-10] MEDS: Calcitriol CAP* 0.25 MCG PO SCH (09:17)
[2018-10-10] MEDS: Calcium Carbonate LIQ* 1,250 MG/5 ML UDC PO SCH ×2 (09:17→12:02)
[2018-10-10] MEDS: Ibuprofen TAB* 600 MG PO PRN (09:17)
[2018-10-10] MEDS: Triamterene/HCTZ 37.5-25 MG* CAP PO SCH (09:20)
[2018-10-10] MEDS: Magnesium Oxide TAB* 400 MG PO SCH (09:20)
--- NOTE | 2018-10-10 10:10 | PN ---
Progress Note - Progress Note Date of Service: 10/10/18 SOAP: Subjective: [Pt feels much better today. She is eager and anxious to go home today. She only complains of a mild "pins and needles" feeling in both her feet which began last night. Otherwise, She has no muscle cramping, or carpal/pedal spasms. Pt has been ambulating around the unit with no difficulty. Pt complains of 3/10 "tight" pain of her surgical incision s/p total thyroidectomy. Pt reports solid BMs and that her diarrhea has resolved. Pt denies fever, chills, nausea, vomiting, SOB, CP, abdominal pain, difficulty with urination or with BMs. ] Objective: [ Vital Signs Temp 98.6 F 10/10/18 07:33 Pulse 79 10/10/18 07:33 Resp 16 10/10/18 08:00 BP 99/62 10/10/18 07:33 Pulse Ox 96 10/10/18 07:33 Intake & Output 10/09/18 10/10/18 10/10/18 18:59 06:59 18:59 Intake Total 320 1210 Output Total 0 0 Balance 320 1210 0 Intake: Oral 320 1210 Output: Urine 0 0 Other: Estimated Void Large Large # Voids 3 General: Pt is resting comfortably on her hospital bed. Well nourished, well developed female. Neck: Trachea is midline. No signs of hematoma present. Moderate amount of edema surrounding the surgical scar s/p total thyroidectomy. Steri strips in place over her incision. Dressing is clean, dry and intact. No signs of infection or copious drainage. Heart: S1, S2. RRR. No M/R/G Lungs: Clear to auscultation throughout Abdomen: No distention or tenderness to palpation. Bowel sounds are normoactive. Neurological: Negative Chvostek's or Trousseau's Sign. No tremor noted of the hands. Sensation to light touch is intact throughout.] Assessment: [38 y/o female POD#6 s/p total thyroidectomy for graves disease presenting with hypoparathyroidism, hypocalcemia and hypomagnesemia. Laboratory Last Values WBC 9.9 10^3/ul (3.5-10.8) 10/10/18 05:32 RBC 4.61 10^6/ul (4.00-5.40) 10/10/18 05:32 Hgb 13.1 g/dl (12.0-16.0) 10/10/18 05:32 Hct 40 % (35-47) 10/10/18 05:32 MCV 87 fL (80-97) 10/10/18 05:32 MCH 29 pg (27-31) 10/10/18 05:32 MCHC 33 g/dl (31-36) 10/10/18 05:32 RDW 13 % (10.5-15) 10/10/18 05:32 Plt Count 260 10^3/ul (150-450) 10/10/18 05:32 MPV 8.1 fL (7.4-10.4) 10/10/18 05:32 Neut % (Auto) 60.1 % 10/06/18 17:31 Lymph % (Auto) 28.7 % 10/06/18 17:31 [place] % (Auto) 6.8 % 10/06/18 17:31 Eos % (Auto) 3.2 % 10/06/18 17:31 Baso % (Auto) 1.2 % 10/06/18 17:31 Absolute Neuts (auto) 6.9 10^3/ul (1.5-7.7) 10/06/18 17:31 Absolute Lymphs (auto) 3.3 10^3/ul (1.0-4.8) 10/06/18 17:31 Absolute Monos (auto) 0.8 10^3/ul (0-0.8) 10/06/18 17:31 Absolute Eos (auto) 0.4 10^3/ul (0-0.6) 10/06/18 17:31 Absolute Basos (auto) 0.1 10^3/ul (0-0.2) 10/06/18 17:31 Absolute Nucleated RBC 0 10^3/ul 10/06/18 17:31 Nucleated RBC % 0 10/06/18 17:31 Sodium 137 mmol/L (135-145) 10/10/18 05:32 Potassium 3.9 mmol/L (3.5-5.0) 10/10/18 05:32 Chloride 103 mmol/L (101-111) 10/10/18 05:32 Carbon Dioxide 26 mmol/L (22-32) 10/10/18 05:32 Anion Gap 8 mmol/L (2-11) 10/10/18 05:32 BUN 10 mg/dL (6-24) 10/10/18 05:32 Creatinine 0.67 mg/dL (0.51-0.95) 10/10/18 05:32 Est GFR ( Amer) 119.2 (>60) 10/10/18 05:32 Est GFR (Non-Af Amer) 98.5 (>60) 10/10/18 05:32 BUN/Creatinine Ratio 14.9 (8-20) 10/10/18 05:32 Glucose 103 mg/dL (70-100) H 10/10/18 05:32 Calcium 8.8 mg/dL (8.6-10.3) 10/10/18 05:32 Ionized Calcium 0.84 mmol/L (1.16-1.32) L 10/07/18 05:09 Magnesium 1.6 mg/dL (1.9-2.7) L 10/10/18 05:32 Total Bilirubin 0.40 mg/dL (0.2-1.0) 10/06/18 17:31 AST 16 U/L (13-39) 10/06/18 17:31 ALT 12 U/L (7-52) 10/06/18 17:31 Alkaline Phosphatase 39 U/L (34-104) 10/06/18 17:31 C-Reactive Protein 2.44 mg/L (<8.01) 10/07/18 05:09 Total Protein 7.0 g/dL (6.4-8.9) 10/06/18 17:31 Albumin 4.0 g/dL (3.2-5.2) 10/06/18 17:31 Globulin 3.0 g/dL (2-4) 10/06/18 17:31 Albumin/Globulin Ratio 1.3 (1-3) 10/06/18 17:31 TSH 3.44 mcIU/mL (0.34-5.60) 10/06/18 17:31 Free T4 0.90 ng/dL (0.61-1.12) 10/06/18 17:31 PTH Intact < 0.1 pmol/L (1.3-9.3) L 10/09/18 06:46 Calcium (PTH Intact) 8.1 mg/dL (8.6-10.3) L 10/09/18 06:46 At this point her serum calcium has normalized however, she is still slightly hypomagnesemic and has hypoparathyroidism. ] Plan: [-Probable discharge today -Follow up to be set up with Dr. Gallardo in the office -Continue Calcium and magnesium supplementation per Dr. Esparza -Follow up blood work daily to monitor electrolytes] Calcitriol (Rocaltrol Cap*) 0.5 mcg PO TID [facility] Last Admin: 10/10/18 09:17 Dose: 0.5 mcg Calcium Carbonate (Calcium Carbonate Liq*) 2,500 mg PO 0800,1200,1500,1700 [facility] Last Admin: 10/10/18 09:17 Dose: 2,500 mg Calcium Carbonate (Calcium Carbonate Liq*) 2,500 mg PO BEDTIME [facility] Last Admin: 10/09/18 21:29 Dose: 2,500 mg Calcium Gluconate 1 gm/ Sodium (Chloride) 60 mls @ 60 mls/hr IVPB Q6H PRN PRN Reason: SEE LABEL COMMENTS Last Admin: 10/08/18 13:00 Dose: 60 mls/hr Magnesium Sulfate (Magnesium Sulfate 2 Gm Iv*) 2 gm in 50 mls @ 50 mls/hr IVPB Q6H PRN PRN Reason: MAGNESIUM <1.5 Last Admin: 10/08/18 10:44 Dose: 50 mls/hr Ibuprofen (Motrin Tab*) 600 mg PO Q6H PRN PRN Reason: PAIN Last Admin: 10/10/18 09:17 Dose: 600 mg Levothyroxine Sodium (Synthroid Tab*) 137 mcg PO DAILY@0600 [facility] Last Admin: 10/10/18 06:05 Dose: 137 mcg Magnesium Oxide (Magox 400 Tab*) 800 mg PO DAILY [facility] Last Admin: 10/10/18 09:20 Dose: 800 mg Ondansetron HCl (Zofran Odt Tab*) 4 mg PO Q8H PRN PRN Reason: NAUSEA/VOMITING Oxycodone/Acetaminophen (Percocet 5/325 Tab*) 1 tab PO Q6H PRN PRN Reason: PAIN Triamterene/HCTZ (Dyazide Cap*) 1 cap PO DAILY [facility] Last Admin: 10/10/18 09:20 Dose: 1 cap
--- NOTE | 2018-10-10 10:30 | PN ---
Subjective Date of Service: 10/10/18 Interval History: Pt states she is feeling better. She still has small amount of numbness and tingling in the arch of both feet, but denies tetany. She states her last dose of calcium was 2100 last night, and she believes this is the cause. She denies CP, SOB, difficulty breathing or swallowing, abd pain, cramping, n/v/d/c. She denies twitching. Objective Active Medications: Calcitriol (Rocaltrol Cap*) 0.5 mcg PO TID [facility] Calcium Carbonate (Calcium Carbonate Liq*) 2,500 mg PO 0800,1200,1500,1700 [facility] Calcium Carbonate (Calcium Carbonate Liq*) 2,500 mg PO BEDTIME [facility] Calcium Gluconate 1 gm/ Sodium (Chloride) 60 mls @ 60 mls/hr IVPB Q6H PRN Magnesium Sulfate (Magnesium Sulfate 2 Gm Iv*) 2 gm in 50 mls @ 50 mls/hr IVPB Q6H PRN Ibuprofen (Motrin Tab*) 600 mg PO Q6H PRN Levothyroxine Sodium (Synthroid Tab*) 137 mcg PO DAILY@0600 [facility] Magnesium Oxide (Magox 400 Tab*) 800 mg PO DAILY [facility] Ondansetron HCl (Zofran Odt Tab*) 4 mg PO Q8H PRN Oxycodone/Acetaminophen (Percocet 5/325 Tab*) 1 tab PO Q6H PRN Triamterene/HCTZ (Dyazide Cap*) 1 cap PO DAILY [facility] Vital Signs: Temp Pulse Resp BP Pulse Ox 98.6 F 79 16 99/62 96 10/10/18 07:33 10/10/18 07:33 10/10/18 08:00 10/10/18 07:33 10/10/18 07:33 Oxygen Devices in Use Now: None Appearance: Pt is sitting up in bed eating breakfast. She is in no acute distress, appears well and comfortable. Eyes: No Scleral Icterus, PERRLA Ears/Nose/Mouth/Throat: NL Teeth, Lips, Gums, Clear Oropharnyx, Mucous Membranes Moist, - - Negative Chvostek's sign Neck: NL Appearance and Movements; NL JVP, Trachea Midline, - - Surgical site with small amount of edema, without erythema. Dressing CDI. Respiratory: Symmetrical Chest Expansion and Respiratory Effort, Clear to Auscultation Cardiovascular: NL Sounds; No Murmurs; No JVD, RRR, No Edema Abdominal: NL Sounds; No Tenderness; No Distention, No Hepatosplenomegaly Extremities: No Edema, No Clubbing, Cyanosis, - - No tetany noted Neurological: Alert and Oriented x 3, NL Sensation Result Diagrams: 10/10/18 05:32 10/10/18 05:32 Additional Lab and Data: Abnormal Lab Results 10/07/18 10/07/18 10/07/18 13:40 13:40 19:33 Calcium 6.9 L 7.1 L Magnesium 1.8 L 2.6 PTH Intact 0.1 L Calcium (PTH Intact) 7.0 L 10/07/18 10/08/18 10/08/18 19:33 01:31 01:31 Calcium 7.6 L Magnesium 1.8 L PTH Intact < 0.1 L < 0.1 L Calcium (PTH Intact) 7.4 L 7.5 L Assess/Plan/Problems-Billing Assessment: Pt is a 38yof with PMHx Grave's disease with total thyroidectomy, cerebral palsy , prolapsed bladder, h/o scarlet fever who presents POD4 total thyroidectomy with hypocalcemia and hypoparathyroidism. - Patient Problems (1) Hypoparathyroidism Comment: -Ca, Mg labs trending upward -Dyazide ordered in hopes of retaining magnesium -Continue treatment of hypocalcemia s/p total thyroidectomy outpatient per Dr. Esparza's recommendations -Discharge this afternoon (2) DVT prophylaxis Comment: -Per surgery; pt is ambulating (3) Full code status Status and Disposition: Inpatient. Discharge once calcium WNL and maintained with PO calcium.
--- NOTE | 2018-10-10 11:28 | PN ---
Progress Note - Progress Note Date of Service: 10/10/18 Note: Surgery Progress Note S: Patient did well overnight. [place] some occasional tingling but much improved. She did not require any IV calcium or magnesium for over 24 hours. O: Vital Signs: Temp Pulse Resp BP Pulse Ox 98.6 F 79 16 99/62 96 10/10/18 07:33 10/10/18 07:33 10/10/18 08:00 10/10/18 07:33 10/10/18 07:33 Laboratory Last Values WBC 9.9 10^3/ul (3.5-10.8) 10/10/18 05:32 RBC 4.61 10^6/ul (4.00-5.40) 10/10/18 05:32 Hgb 13.1 g/dl (12.0-16.0) 10/10/18 05:32 Hct 40 % (35-47) 10/10/18 05:32 MCV 87 fL (80-97) 10/10/18 05:32 MCH 29 pg (27-31) 10/10/18 05:32 MCHC 33 g/dl (31-36) 10/10/18 05:32 RDW 13 % (10.5-15) 10/10/18 05:32 Plt Count 260 10^3/ul (150-450) 10/10/18 05:32 MPV 8.1 fL (7.4-10.4) 10/10/18 05:32 Neut % (Auto) 60.1 % 10/06/18 17:31 Lymph % (Auto) 28.7 % 10/06/18 17:31 Rolette % (Auto) 6.8 % 10/06/18 17:31 Eos % (Auto) 3.2 % 10/06/18 17:31 Baso % (Auto) 1.2 % 10/06/18 17:31 Absolute Neuts (auto) 6.9 10^3/ul (1.5-7.7) 10/06/18 17:31 Absolute Lymphs (auto) 3.3 10^3/ul (1.0-4.8) 10/06/18 17:31 Absolute Monos (auto) 0.8 10^3/ul (0-0.8) 10/06/18 17:31 Absolute Eos (auto) 0.4 10^3/ul (0-0.6) 10/06/18 17:31 Absolute Basos (auto) 0.1 10^3/ul (0-0.2) 10/06/18 17:31 Absolute Nucleated RBC 0 10^3/ul 10/06/18 17:31 Nucleated RBC % 0 10/06/18 17:31 Sodium 137 mmol/L (135-145) 10/10/18 05:32 Potassium 3.9 mmol/L (3.5-5.0) 10/10/18 05:32 Chloride 103 mmol/L (101-111) 10/10/18 05:32 Carbon Dioxide 26 mmol/L (22-32) 10/10/18 05:32 Anion Gap 8 mmol/L (2-11) 10/10/18 05:32 BUN 10 mg/dL (6-24) 10/10/18 05:32 Creatinine 0.67 mg/dL (0.51-0.95) 10/10/18 05:32 Est GFR ( Amer) 119.2 (>60) 10/10/18 05:32 Est GFR (Non-Af Amer) 98.5 (>60) 10/10/18 05:32 BUN/Creatinine Ratio 14.9 (8-20) 10/10/18 05:32 Glucose 103 mg/dL (70-100) H 10/10/18 05:32 Calcium 8.8 mg/dL (8.6-10.3) 10/10/18 05:32 Ionized Calcium 0.84 mmol/L (1.16-1.32) L 10/07/18 05:09 Magnesium 1.6 mg/dL (1.9-2.7) L 10/10/18 05:32 Total Bilirubin 0.40 mg/dL (0.2-1.0) 10/06/18 17:31 AST 16 U/L (13-39) 10/06/18 17:31 ALT 12 U/L (7-52) 10/06/18 17:31 Alkaline Phosphatase 39 U/L (34-104) 10/06/18 17:31 C-Reactive Protein 2.44 mg/L (<8.01) 10/07/18 05:09 Total Protein 7.0 g/dL (6.4-8.9) 10/06/18 17:31 Albumin 4.0 g/dL (3.2-5.2) 10/06/18 17:31 Globulin 3.0 g/dL (2-4) 10/06/18 17:31 Albumin/Globulin Ratio 1.3 (1-3) 10/06/18 17:31 TSH 3.44 mcIU/mL (0.34-5.60) 10/06/18 17:31 Free T4 0.90 ng/dL (0.61-1.12) 10/06/18 17:31 PTH Intact < 0.1 pmol/L (1.3-9.3) L 10/09/18 06:46 Calcium (PTH Intact) 8.1 mg/dL (8.6-10.3) L 10/09/18 06:46 Intake & Output 10/09/18 10/10/18 10/10/18 22:59 06:59 14:59 Intake Total 1210 Output Total 0 0 Balance 1210 0 Intake: Oral 1210 Output: Urine 0 0 Other: Estimated Void Large Neck: incision clean, dry, intact, mild swelling around dressing A/P: 38 F sp total thyroidectomy for Graves with hypoparathyroidism, calcium levels have stabilized on oral supplementation. - Appreciate Dr. Esparza and hospitalists care. Patient will be discharged today on oral calcium carbonate, calcitriol and magnesium regimen per Dr. Esparza and will be tapered as an outpatient. - Patient should follow up with me next week for a post operative visit
[2018-10-10 11:30] VITALS: BP 118/83
[2018-10-10 13:08] LABS: Calcium 9.3 mg/dL (8.6-10.3); Magnesium 1.7 mg/dL (1.9-2.7)
--- NOTE | 2018-10-10 17:00 | DS ---
CC: Dr. Antwon Esparza; Dr. Alden Turner * DISCHARGE SUMMARY: DATE OF ADMISSION: 10/06/18 DATE OF DISCHARGE: 10/10/18 SERVICE: General Surgery. CONSULTING PHYSICIANS: Hospitalist service, Dr. Antwon Esparza. ADMISSION DIAGNOSES: 1. Hypocalcemia. 2. Hypomagnesemia. 3. Hypoparathyroidism after total thyroidectomy. HOSPITAL COURSE: Ms. Sánchez is a 38-year-old female with a history of Graves disease refractory to medical management, who underwent a total thyroidectomy on 10/04/18. The surgery was uncomplicated; however, given how large her thyroid was, 2 of her parathyroids had to be autotransplanted and 2 of them had to be skeletonized off the thyroid possibly compromising their blood supply. The patient was discharged on same day of surgery. She says that on postoperative day 1, her nausea had been improving and she was developing appetite again; however, was unable to eat very much and on postoperative day 2 , she says she started developing tingling and numbness around her mouth and her fingers and toes as well as some hand cramping and what sounds like tetany. She contacted the covering surgeon, who told her to come to the emergency room and where it was found that her calcium level was 7.2, her parathyroid hormone levels were undetectable, and her magnesium level was 1.5. Given these findings, she was started immediately on calcium gluconate 1 g IV and also given supplemental magnesium. Her EKG was normal. She was admitted for calcium checks, on supplementation and medical management. Her hospital course was significant for several days of supplementing her with IV calcium as well as IV magnesium as both of these levels were low, as well as increasing her dose of oral calcium. Dr. Esparza was consulted and started her on hydrochlorothiazide and triamterene in order to increase the absorption of calcium renally. The patient overall did well. By the day of discharge, on 03/21, she was not having any significant cramping. She had an occasional tingling; however, her calcium levels had stabilized on oral medications only. Her last 3 calcium levels yesterday were 9, 8.8 and 9.3, and she was not significantly symptomatic. Her last three magnesium levels were 1.6, 1.6 and 1.7. Since her calcium levels had stabilized, she was determined to be safe to be discharged home on oral supplementation with close followup. Dr. Esparza has arranged for her to receive daily labs in order to begin to titrate down her supplemental calcium. PHYSICAL EXAMINATION: Vital Signs: Upon discharge, temperature is 98.9, pulse is 96, respiratory rate is 16, O2 sat is 100% O2 on room air, blood pressure is 118/83. Her neck incision is clean, dry, and intact with Steri-Strips over it, mild amount of swelling. LABORATORY VALUES: On 10/10/18, calcium level is 9.3, magnesium is 1.7. DISCHARGE MEDICATIONS: 1. Calcitriol 0.5 mcg p.o. b.i.d. 2. Calcium carbonate liquid 2500 mg p.o. q.4 hours. 3. Magnesium oxide 400 mg p.o. t.i.d. 4. Triamterene/hydrochlorothiazide 37.5/25 mg p.o. daily. DISCHARGE INSTRUCTIONS: The patient has followup to see Dr. Esparza in his office next week. She will obtain daily labs and will communicate with him about titrating down her oral calcium as her parathyroids begin to work again. She has appointment to see myself in the office next week on 10/14/18 for postoperative check. She will also see her primary care physician, Dr. Turner, upon discharge. [id number]/[facility] #: [id number] JESSY
== END 2018-10-10 13:20 | disposition home or self-care (01) | DRG 425 ==
LOC: ED 17:04 → SSU 19:21
PROVIDERS: ADMIT Surgery; ATTEND Surgery
DX: E83.51 Hypocalcemia (principal); E83.42 Hypomagnesemia; E89.2 Postprocedural hypoparathyroidism; E89.0 Postprocedural hypothyroidism; R40.2142 Coma scale, eyes open, spontaneous, at arrival to emergency department; R40.2362 Coma scale, best motor response, obeys commands, at arrival to emergency department; R40.2252 Coma scale, best verbal response, oriented, at arrival to emergency department; G80.9 Cerebral palsy, unspecified; Z82.49 Family history of ischemic heart disease and other diseases of the circulatory system; Z72.89 Other problems related to lifestyle
CPT/HCPCS: 36415; 80048; 80053; 82310; 82330; 83735; 83970; 84439; 84443; 85025; 85027; 86140; 93005; 99284; A9270-GY; J0610; J3475